=== PATIENT | male | born 1940 | race Caucasian/White ===

== ENCOUNTER → 2020-01-07 13:13 | Outpatient (BNVA) | payer OTHER, SELFPAY | PROVIDERS: Family Provider Emergency Medicine Emergency Medical Services; PCP Emergency Medicine Emergency Medical Services; Visit Provider Urology | DX: N40.1 Benign prostatic hyperplasia with lower urinary tract symptoms (principal); R31.21 Asymptomatic microscopic hematuria | CPT/HCPCS: 81001 ==

== ENCOUNTER 2020-07-01 13:31 | Inpatient (IN) | payer OTHER, MEDICARE, SELFPAY ==
[2020-07-01] VITALS (19 sets, daily range): BP systolic 66–137; BP diastolic 43–86; PULSE 85–199; RESP 19–48; TEMP 36.8; O2SAT 95–100; BMI 26.4
[2020-07-01 13:38] LABS: ABG PH Result 7.41 (7.35-7.45); Alveolar-Arterial Oxygen Gradi 26.2 mmHg (5-10); Arterial Blood Gas Hematocrit 43.5 % (42-52); Base Excess ABG -7.7 mmol/L (-2.0-2.0); Blood Gas Allen Test Pos; Blood Gas Operator Identificat ED; Blood Gas Sample Site Radial, right; Blood Gas Sample Type Arterial; HCO3 ABG 15.1 mmol/L (22-26); HGB O2 Sat 85.3 % (95-100); Ionized Calcium Level - ABG 1.1 mmol/L (1.1-1.4); Methemoglobin 0.6 % (0.4-1.5); Oxygen Device NC; Oxygen Saturation ABG 86.7; PO2 ABG 51.6 mmHg (80.0-100.0); Potassium Level - ABG 3.8 mmol/L (3.5-5.0); Total Hemoglobin 14.2 g/dL (14-18)
--- NOTE | 2020-07-01 13:42 | ECG_ITS ---
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: : 1940 Requested By: Dannie Mark Order Number: [id number] Reading MD: Measurements Intervals [place] Rate: 104 P: 23 VT: 183 QRS: -59 QRSD: 116 T: 94 QT: 352 QTc: 463 Interpretive Statements SINUS TACHYCARDIA POSSIBLE ANTERIOR MYOCARDIAL INFARCTION , OF INDETERMINATE AGE [30 ms Q WAVE IN V3/V4, OR R < 0.2 mV IN V4] INFERIOR MYOCARDIAL INFARCTION , OF INDETERMINATE AGE [40+ ms Q WAVE AND/OR ST/T ABNORMALITY IN II/aVF] INTERPRETATION BASED ON A DEFAULT AGE OF 40 YEARS No previous ECG available for comparison [email or web address]
--- NOTE | 2020-07-01 13:42 | XR_ITS ---
WS: [id number] Exam: XR chest 1V portable [id number] Date/Time of Exam: 07/01/2020 1:51 PM Reason For Exam: SOB/COVID Comparison 02/05/2018. There are patchy groundglass infiltrates in the mid and lower right lung as well as the left lower vaibhav ng zone. Findings suggest pneumonia. The lungs are fully expanded. Cardiomediastinal structures appea r normal. Regional bony elements are intact. There is hardware in the cervical spine. XR/XR chest 1V portable [id number] IMPRESSION: 1. Patchy groundglass infiltrates in the mid and lower right lung as well as th e left lung base suggesting pneumonia.
[2020-07-01] MEDS: dexamethasone 4 mg/mL INJ 10 MG IVP (13:51)
[2020-07-01] MEDS: sodium chloride 0.9% 500 ML 999 ML IV (13:52)
[2020-07-01 14:11] LABS: Basophils % 0.2 %; Eosinophils % 0.1 %; Hematocrit 42.9 % (42.0-52.0); Lymphocytes # 0.8 10^3/uL (0.8-4.8); Lymphocytes % 6.7 %; Mean Corpuscular HGB Conc 32.6 g/dL (30.0-36.0); Mean Corpuscular Hemoglobin 28.5 pg (28.0-34.0); Mean Corpuscular Volume 87.2 fL (80-94); Mean Platelet Volume 9.3 fL (7.4-10.4); Monocytes % 8.2 %; Neutrophils # 9.91 10^3/uL (1.8-7.7); Neutrophils % 82.4 %; Nucleated Red Blood Cells % 0 %; Platelet Count 521 10^3/cmm (130-400); Red Blood Count 4.92 10^6/uL (4.1-5.3); Red Cell Distribution Width 14.4 % (12.1-15.1)
[2020-07-01 14:23] LABS: Lactic Sepsis W/Reflex 2.8 mmol/L (0.5-2.2)
--- NOTE | 2020-07-01 14:30 | ED_ITS ---
HPI - COVID General: Chief Complaint: COVID symptoms Stated Complaint: COVID+/SOB Time Seen by Provider: 07/01/20 14:05 Triage information: Has fever, cough or shortness of breath . Exposure to COVID + person last 14 days History of Present Illness: HPI Narrative: 80-year-old male with a history of COPD who presents to the emergency room with complaints of difficulty breathing. Patient tested on 1019+ for Covid no last several days has had progressive worsening with his breathing. He has a history of heart disease and hyp ertension he is also on anticoagulants. Is a history of COPD is not usually on oxygen on arrival here he is breathing 30-40 times a minute with a systolic pressure in the 90s and sats in the low 90s. He has conversational dyspnea. MD complaint: known COVID positive Prior covid testing: yes, results known COVID 19 common symptoms: positive fever(s), chills, cough, productive cough, dyspnea, fatigue, body aches, nasal congestion and nausea COVID 19 other sytmptoms: positive requiring more oxygen, respiratory distress and lethargy; negative chest pain Onset (ago): day(s) Severity: severe Pertinent comorbid conditions: hypertension and heart disease Treatment prior to arrival: none COVID Results: No Data to Display Review of Systems Const: Reports: fever(s), chills, body aches and fatigue ENMT: Reports: nasal congestion Card: Denies: chest pain, edema, dyspnea on exertion or orthopnea Resp: Reports: dyspnea and productive cough GI: Reports: nausea : Denies: flank pain, dysuria, urinary frequency or urinary urgency Skin/Breast: Denies: rash or pruritus [facility] ED PFSH: Medical History (Updated 07/02/20 @ 08:57 by Dannie Gayle DO) Asymptomatic microscopic hematuria Atrial flutter BPH NOS w ur obs/LUTS CKD stage G3a/A1, GFR 45-59 and albumin creatinine ratio <30 mg/g COPD (chronic obstructive pulmonary disease) Coronary artery disease Surgical History H/O wisdom tooth extraction History of right inguinal hernia repair Family History Other Asthma CAD (coronary artery disease) Social History (Updated 07/01/20 @ 17:22 by Radha Banks MD) Smoking and tobacco status: former smoker Alcohol intake: never Household members: spouse Marital status: Current occupational status: retired History of recent travel: No Physical Exam Const: GENERAL APPEARANCE: cooperative ORIENTATION/CONSCIOUSNESS: Yes awake, Yes oriented to person, Yes oriented to place and Yes oriented to time HENMT: COMMON NORMALS: hearing grossly normal bilaterally Neck/C-Spine: COMMON NORMALS: no JVD Resp: AUSCULTATION: rhonchi and wheezes Cardio: COMMON NORMALS: no JVD, regular rate, regular rhythm and No murmurs present (Cardio) RATE: regular rate RHYTHM: regular rhythm GI: COMMON NORMALS: Soft to palpation and No hepatosplenomegaly present AUSCULTATION: Yes normoactive bowel sounds PALPATION: Yes Soft to palpation, No Tenderness to palpation present (GI), No Guarding due to palpation present (GI) and Yes No hepatosplenomegaly present Extremity: COMMON NORMALS: normal to inspection, capillary refill normal, no clubbing, cyanosis or edema, no calf tenderness and no pedal edema Neuro: SENSORIUM/ORIENTATION: Yes oriented to person, Yes oriented to place and Yes oriented to time Skin: COMMON NORMALS: no rashes or lesions noted GENERAL SKIN EXAM: no rashes or lesions noted Course Vital Signs: Vital signs: Vital Signs Temperature 98.7 F 07/02/20 07:36 Pulse Rate 82 07/02/20 08:33 Respiratory Rate 16 07/02/20 08:33 Blood Pressure 120/69 07/02/20 04:00 Pulse Oximetry 94 07/02/20 08:33 MDM - COVID MDM Narrative Medical decision making narrative: Patient improved on BiPAP and remaining stable. Discussed with Dr. Aba grier we will maintain him on BiPAP for now admit to the VICU. orders are written. Gentle fluid hydration for dehydration. Lab Data Result diagrams: 07/02/20 03:45 07/02/20 03:45 Labs: Lab Results 07/01/20 07/01/20 07/01/20 Range/Units 13:28 13:45 13:45 WBC 12.0 H (4.0-10.0) 10^3/uL RBC 4.92 (4.1-5.3) 10^6/uL Hgb 14.0 (11.7-16.6) g/dL Hct 42.9 (42.0-52.0) % MCV 87.2 (80-94) fL MCH 28.5 (28.0-34.0) pg MCHC 32.6 (30.0-36.0) g/dL RDW 14.4 (12.1-15.1) % Plt Count 521 H (130-400) 10^3/cmm MPV 9.3 (7.4-10.4) fL Neut % (Auto) 82.4 % Lymph % (Auto) 6.7 % Ritchie % (Auto) 8.2 % Eos % (Auto) 0.1 % Baso % (Auto) 0.2 % Neut # (Auto) 9.91 H (1.8-7.7) 10^3/uL Lymph # (Auto) 0.8 (0.8-4.8) 10^3/uL Ritchie # (Auto) 1.0 H (0.2-0.9) 10^3/uL Eos # (Auto) 0.0 (0.0-0.8) 10^3/uL Baso # (Auto) 0.0 (0.0-0.1) 10^3/uL Nucleated RBC % (auto) 0 % Nucleated RBCs # 0.0 /100WBC Fibrinogen 799 H (174-498) mg/dL D-Dimer 1.02 H (0-0.59) ug/mIFEU Specimen Type Arterial Sample Site Radial, right ABG pH 7.41 (7.35-7.45) ABG pCO2 24.0 L (35-45) mmHg ABG pO2 51.6 L (80.0-100.0) mmHg ABG HCO3 15.1 L (22-26) mmol/L ABG O2 Saturation 86.7 ABG Base Excess -7.7 L (-2.0-2.0) mmol/L Anupam Test Pos A-a O2 Gradient 26.2 H (5-10) mmHg Hematocrit 43.5 (42-52) % Hgb O2 Saturation 85.3 L (95-100) % Carboxyhemoglobin 1.0 (0.4-20.1) %THgb Methemoglobin 0.6 (0.4-1.5) % Total Hemoglobin 14.2 (14-18) g/dL Sodium 139.0 (131-143) mmol/L Potassium 3.8 (3.5-5.0) mmol/L Glucose 139.0 H (70-115) mg/dL Ionized Calcium 1.1 (1.1-1.4) mmol/L O2 Delivery Device Nc O2 Liters/Min 5.0 % FiO2 40.0 % Child Development Associate Teacher ID Ed Chloride (98-107) mmol/L Carbon Dioxide (22-29) mmol/L Anion Gap (5-19) BUN (8-23) mg/dL Creatinine (0.7-1.2) mg/dL GFR Calculation Calculated Osmolality (285-295) mOsm/kg Lactic Acid (0.5-2.2) mmol/L Lactic Acid (Sepsis) (0.5-2.2) mmol/L Calcium (8.5-10.5) mg/dL Ferritin (30-400) ng/mL Total Bilirubin (0.15-1.2) mg/dL AST (0-40) U/L ALT (0-41) U/L Alkaline Phosphatase (40-130) IU/L Lactate Dehydrogenase (135-225) U/L C-Reactive Protein (0.0-4.9) mg/L Total Protein (6.6-8.7) g/dL Albumin (3.5-5.2) g/dL Globulin (1.3-4.6) g/dL Procalcitonin (0-0.5) ng/mL 07/01/20 07/01/20 07/01/20 Range/Units 13:45 13:45 15:10 WBC (4.0-10.0) 10^3/uL RBC (4.1-5.3) 10^6/uL Hgb (11.7-16.6) g/dL Hct (42.0-52.0) % MCV (80-94) fL MCH (28.0-34.0) pg MCHC (30.0-36.0) g/dL RDW (12.1-15.1) % Plt Count (130-400) 10^3/cmm MPV (7.4-10.4) fL Neut % (Auto) % Lymph % (Auto) % Ritchie % (Auto) % Eos % (Auto) % Baso % (Auto) % Neut # (Auto) (1.8-7.7) 10^3/uL Lymph # (Auto) (0.8-4.8) 10^3/uL Ritchie # (Auto) (0.2-0.9) 10^3/uL Eos # (Auto) (0.0-0.8) 10^3/uL Baso # (Auto) (0.0-0.1) 10^3/uL Nucleated RBC % (auto) % Nucleated RBCs # /100WBC Fibrinogen (174-498) mg/dL D-Dimer (0-0.59) ug/mIFEU Specimen Type Arterial Sample Site Brachial, left ABG pH 7.39 (7.35-7.45) ABG pCO2 25.4 L (35-45) mmHg ABG pO2 76.9 L (80.0-100.0) mmHg ABG HCO3 15.2 L (22-26) mmol/L ABG O2 Saturation 95.5 ABG Base Excess -8.2 L (-2.0-2.0) mmol/L Anupam Test N/a A-a O2 Gradient 50.1 H (5-10) mmHg Hematocrit 39.6 L (42-52) % Hgb O2 Saturation 94.1 L (95-100) % Carboxyhemoglobin 0.8 (0.4-20.1) %THgb Methemoglobin 0.6 (0.4-1.5) % Total Hemoglobin 12.9 L (14-18) g/dL Sodium 136 139.0 (131-143) mmol/L Potassium 3.9 3.9 (3.5-5.0) mmol/L Glucose 135 H 135.0 H (70-115) mg/dL Ionized Calcium 1.1 (1.1-1.4) mmol/L O2 Delivery Device Bipap O2 Liters/Min % FiO2 70.0 % Child Development Associate Teacher ID Amh Chloride 97 L (98-107) mmol/L Carbon Dioxide 18 L (22-29) mmol/L Anion Gap 24.9 H (5-19) BUN 112 H* (8-23) mg/dL Creatinine 2.9 H (0.7-1.2) mg/dL GFR Calculation Not Reportable Calculated Osmolality 320 H (285-295) mOsm/kg Lactic Acid 2.8 H (0.5-2.2) mmol/L Lactic Acid (Sepsis) (0.5-2.2) mmol/L Calcium 8.7 (8.5-10.5) mg/dL Ferritin 2333 H (30-400) ng/mL Total Bilirubin 1.2 (0.15-1.2) mg/dL AST 54 H (0-40) U/L ALT 40 (0-41) U/L Alkaline Phosphatase 87 (40-130) IU/L Lactate Dehydrogenase 514 H (135-225) U/L C-Reactive Protein 197.7 H (0.0-4.9) mg/L Total Protein 6.9 (6.6-8.7) g/dL Albumin 3.7 (3.5-5.2) g/dL Globulin 3.2 (1.3-4.6) g/dL Procalcitonin 0.32 (0-0.5) ng/mL 07/01/20 Range/Units 16:00 WBC (4.0-10.0) 10^3/uL RBC (4.1-5.3) 10^6/uL Hgb (11.7-16.6) g/dL Hct (42.0-52.0) % MCV (80-94) fL MCH (28.0-34.0) pg MCHC (30.0-36.0) g/dL RDW (12.1-15.1) % Plt Count (130-400) 10^3/cmm MPV (7.4-10.4) fL Neut % (Auto) % Lymph % (Auto) % Ritchie % (Auto) % Eos % (Auto) % Baso % (Auto) % Neut # (Auto) (1.8-7.7) 10^3/uL Lymph # (Auto) (0.8-4.8) 10^3/uL Ritchie # (Auto) (0.2-0.9) 10^3/uL Eos # (Auto) (0.0-0.8) 10^3/uL Baso # (Auto) (0.0-0.1) 10^3/uL Nucleated RBC % (auto) % Nucleated RBCs # /100WBC Fibrinogen (174-498) mg/dL D-Dimer (0-0.59) ug/mIFEU Specimen Type Sample Site ABG pH (7.35-7.45) ABG pCO2 (35-45) mmHg ABG pO2 (80.0-100.0) mmHg ABG HCO3 (22-26) mmol/L ABG O2 Saturation ABG Base Excess (-2.0-2.0) mmol/L Anupam Test A-a O2 Gradient (5-10) mmHg Hematocrit (42-52) % Hgb O2 Saturation (95-100) % Carboxyhemoglobin (0.4-20.1) %THgb Methemoglobin (0.4-1.5) % Total Hemoglobin (14-18) g/dL Sodium (131-143) mmol/L Potassium (3.5-5.0) mmol/L Glucose (70-115) mg/dL Ionized Calcium (1.1-1.4) mmol/L O2 Delivery Device O2 Liters/Min % FiO2 % Child Development Associate Teacher ID Chloride (98-107) mmol/L Carbon Dioxide (22-29) mmol/L Anion Gap (5-19) BUN (8-23) mg/dL Creatinine (0.7-1.2) mg/dL GFR Calculation Calculated Osmolality (285-295) mOsm/kg Lactic Acid (0.5-2.2) mmol/L Lactic Acid (Sepsis) 1.7 (0.5-2.2) mmol/L Calcium (8.5-10.5) mg/dL Ferritin (30-400) ng/mL Total Bilirubin (0.15-1.2) mg/dL AST (0-40) U/L ALT (0-41) U/L Alkaline Phosphatase (40-130) IU/L Lactate Dehydrogenase (135-225) U/L C-Reactive Protein (0.0-4.9) mg/L Total Protein (6.6-8.7) g/dL Albumin (3.5-5.2) g/dL Globulin (1.3-4.6) g/dL Procalcitonin (0-0.5) ng/mL COVID Results: No Data to Display Discharge Plan Discharge Patient Disposition: Admitted As Inpatient Admit Provider: Radha Banks Clinical Impression: Pneumonia due to COVID-19 virus, Acute respiratory failure with hypoxia, COPD exacerbation, GAB (acute kidney injury), BPH NOS w ur obs/LUTS, Coronary artery disease Condition: Stable Interventions: ED Discharge Assessment Last Done: 07/01/20 19:16 ED Charges Last Done: 07/01/20 19:16 Discharge Date/Time: 07/01/20 19:17 Coding Level of Care Code ED Furnace Cooler for Chg Fwd Exam Comprehensive
[2020-07-01 14:33] LABS: Procalcitonin 0.32 ng/mL (0-0.5)
[2020-07-01 14:36] LABS: Fibrinogen 799 mg/dL (174-498)
[2020-07-01 14:44] LABS: Alanine Aminotransferase 40 U/L (0-41); Albumin Level 3.7 g/dL (3.5-5.2); Alkaline Phosphatase 87 IU/L (40-130); Anion Gap 24.9 (5-19); Aspartate Amino Transferase 54 U/L (0-40); C Reactive Protein 197.7 mg/L (0.0-4.9); Calcium 8.7 mg/dL (8.5-10.5); Carbon Dioxide 18 mmol/L (22-29); Chloride 97 mmol/L (98-107); Globulin 3.2 g/dL (1.3-4.6); Glucose 135 mg/dL (65-115); Lactate Dehydrogenase 514 U/L (135-225); Osmolality Calculated 320 mOsm/kg (285-295); Potassium 3.9 mmol/L (3.5-5.1); Sodium 136 mmol/L (136-145); Total Bilirubin 1.2 mg/dL (0.15-1.2); Total Protein 6.9 g/dL (6.6-8.7)
[2020-07-01 14:47] LABS: Blood Urea Nitrogen 112 mg/dL (8-23)
[2020-07-01 14:59] LABS: Ferritin 2333 ng/mL (30-400)
[2020-07-01 15:24] LABS: ABG PCO2 25.4 mmHg (35-45); ABG PH Result 7.39 (7.35-7.45); Alveolar-Arterial Oxygen Gradi 50.1 mmHg (5-10); Arterial Blood Gas Hematocrit 39.6 % (42-52); Base Excess ABG -8.2 mmol/L (-2.0-2.0); Blood Gas Operator Identificat AMH; Blood Gas Sample Site Brachial, left; Blood Gas Sample Type Arterial; Carboxyhemoglobin 0.8 %THgb (0.4-20.1); HCO3 ABG 15.2 mmol/L (22-26); HGB O2 Sat 94.1 % (95-100); Ionized Calcium Level - ABG 1.1 mmol/L (1.1-1.4); Methemoglobin 0.6 % (0.4-1.5); Oxygen Device BIPAP; Oxygen Saturation ABG 95.5; PO2 ABG 76.9 mmHg (80.0-100.0); Potassium Level - ABG 3.9 mmol/L (3.5-5.0); Total Hemoglobin 12.9 g/dL (14-18)
[2020-07-01 15:44] LABS: Reflex Lactate Order REFLEX LACTIC ORDERD
[2020-07-01] MEDS: sodium chloride 0.9% 1,000 ML 999 ML IV (16:07)
[2020-07-01 16:27] LABS: Lactic Acid level (Lactate) 1.7 mmol/L (0.5-2.2)
[2020-07-01 16:32] LABS: D Dimer 1.02 ug/mIFEU (0-0.59)
--- NOTE | 2020-07-01 16:41 | PC.NURSE ---
Spoke with pt daughter Paris and updated on pt status and pending admission. All questions answered.
--- NOTE | 2020-07-01 17:11 | P.HP_ITS ---
Providers/Chief Complaint Admitting Physician: Radha Banks MD Primary Care Provider: Antolin Jernigan DO Chief Complaint: COVID+/SOB History of Present Illness Armando Tripathi is a 80 year old male with PMHx noted below presents from home via EMS secondary to acutely worsening shortness of breath, cough, fatigue. He was diagnosed with COVID-19 on 06/17 during which time he began to present with symptoms primarily shortness of breath, nausea, diarrhea, fatigue. He thought he was getting better as he felt relatively well until earlier this morning while he was in the kitchen trying to get some water when he suddenly got quite short of breath with worsening dry and persistent cough. 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 Due to degree of respiratory distress en route to the hospital he was placed on supplemental oxygen with noted continued tachypnea, inability to maintain his oxygen saturation appropriately. On his arrival to the ER he was placed on BiPAP with noted improvement in his overall work of breathing as well as oxygenation. He was noted to be hypotensive and so far has received 2 L normal saline bolus with improvement in his blood pressure. He is afebrile with regular heart rate. Chest x-ray shows evidence of groundglass infiltrates bilaterally suggestive of pneumonia and he has received a dose of remdesivir and dexamethasone. The work-up indicates leukocytosis with a white count of 12.0, neutrophilic predominance, elevated inflammatory markers including platelet count, fibrinogen, D-dimer, LDH, and ferritin. His renal function is also quite impaired with a BUN of 112 and creatinine of 2.9. Lactic acid is 2.8, procalcitonin is 0.32. He is able to provide much of his own history during my encounter in the ER though he does remain on BiPAP support with an FiO2 of 70%. Repeat ABG shows improvement in oxygenation with PO2 improving from 51.6->76.9. He will be admitted to the viral ICU for further treatment and close monitoring. Low threshold for decompensation and possible intubation. I have updated patient's daughter Rika Rendon over the phone on patient's clinical status. Review of Systems Const: Reports: change in appetite (decreased appetite) and fatigue; Denies: fever(s) or chills Eyes: Denies: change in vision ENMT: Reports: dry mouth Card: Reports: dyspnea on exertion; Denies: chest pain, swelling of feet/ankles or lightheadedness Resp: Reports: dyspnea and non-productive cough; Denies: hemoptysis GI: Reports: nausea and diarrhea; Denies: abdominal pain, vomiting, hematemesis or hematochezia : Denies: dysuria or hematuria Musc: Denies: back pain Skin/Breast: Denies: rash Neuro: Reports: weakness in extremities; Denies: numbness in extremities Psych: Denies: anxiety Medications/Allergies Home Medications Medication Instructions Recorded Confirmed Last Taken Type apixaban 5 mg tablet 5 mg PO BID 01/07/20 07/01/20 Unknown History atorvastatin 80 mg tablet 40 mg PO DAILY 01/07/20 07/01/20 Unknown History cholecalciferol (vitamin D3) 50 50 mcg PO DAILY 01/07/20 07/01/20 Unknown History mcg (2,000 unit) capsule turmeric 400 mg capsule 400 mg PO DAILY 01/07/20 07/01/20 Unknown History albuterol sulfate 2.5 mg INHALATION Q6H 07/01/20 07/01/20 Unknown History ipratropium-albuterol 1 puff INHALATION Q6H 07/01/20 07/01/20 Unknown History lisinopril-hydrochlorothiazide 1 tab PO DAILY 07/01/20 07/01/20 Unknown History metoprolol tartrate 50 units PO BID 07/01/20 07/01/20 Unknown History olodaterol 2 inh INHALATION DAILY 07/01/20 07/01/20 Unknown History sildenafil See Rx Instructions .ROUTE .COMPLEX 07/01/20 07/01/20 Unknown History tamsulosin 0.4 mg PO BEDTIME 07/01/20 07/01/20 Unknown History Allergies Allergy/AdvReac Type Severity Reaction Status Date / Time No Known Allergies Allergy Unverified 01/07/20 13:06 PFSH Acute PFSH: Medical History (Updated 07/01/20 @ 18:24 by Radha Banks MD) Asymptomatic microscopic hematuria Atrial flutter BPH NOS w ur obs/LUTS CKD stage G3a/A1, GFR 45-59 and albumin creatinine ratio <30 mg/g COPD (chronic obstructive pulmonary disease) Coronary artery disease Surgical History H/O wisdom tooth extraction History of right inguinal hernia repair Family History Other Asthma CAD (coronary artery disease) Social History (Updated 07/01/20 @ 17:22 by Radha Banks MD) Smoking and tobacco status: former smoker Alcohol intake: never Household members: spouse Marital status: Current occupational status: retired History of recent travel: No Vitals/I&O/Wt Last Vital Signs Temp 98.2 F 07/01/20 13:33 Pulse 91 07/01/20 16:00 Resp 23 H 07/01/20 16:00 BP 93/43 07/01/20 16:00 Pulse Ox 100 07/01/20 16:00 07/01/20 07/01/20 07/01/20 06:59 14:59 22:59 Intake Total 500 / 500 Balance 500 / 500 Weight last 48 hrs Weight 88.451 kg Physical Exam Const: COMMON NORMALS: no acute distress, patient oriented x3 and alert GENERAL APPEARANCE: cooperative and comfortable; not ill appearing ORIENTATION/CONSCIOUSNESS: Yes awake HENMT: COMMON NORMALS: normocephalic, atraumatic, hearing grossly normal bilaterally and moist oral mucous membranes HEAD & SCALP: normocephalic and atraumatic Eye: COMMON NORMALS: Equal, round and reactive pupils present, EOMs intact bilaterally and conjunctivae normal CONJUNCTIVA: Yes conjunctivae normal PUPIL: Yes Equal, round and reactive pupils present Neck/C-Spine: COMMON NORMALS: full ROM GENERAL: Yes normal visual inspection and Yes trachea midline Resp: COMMON NORMALS: No retractions and No use of accessory muscles EFFORT & INSPECTION: Yes able to speak in complete sentences, Yes symmetric chest movement and Yes tachypneic AUSCULTATION: diminished lung sounds OTHER: - on BiPAP (70%/19/04) Cardio: COMMON NORMALS: regular rate, regular rhythm, S1 normal heart sound present, S2 normal heart sound present and No murmurs present (Cardio) RATE: regular rate RHYTHM: regular rhythm HEART SOUNDS: S1 normal heart sound present and S2 normal heart sound present GI: COMMON NORMALS: Normal to inspection, nondistended, normoactive bowel sounds present, Soft to palpation and non-tender INSPECTION: Yes central obesity PALPATION: Yes Soft to palpation Extremity: COMMON NORMALS: normal to inspection, full ROM, no clubbing, cyanosis or edema and no pedal edema Neuro: COMMON NORMALS: patient oriented x3, moves all extremities, no focal motor deficits, no sensory deficits noted and gait normal Psych: COMMON NORMALS: mental status grossly normal, Normal thought process present, cooperative, normal affect and speech normal SPEECH: Yes normal speech THOUGHT PROCESS: Normal thought process present Skin: COMMON NORMALS: no rashes or lesions noted, no jaundice, no petechiae and no mottling GENERAL SKIN EXAM: no rashes or lesions noted Data : 07/01/20 13:45 07/01/20 13:45 A&P Assessment and plan (1) Acute respiratory failure with hypoxia: -Presented in significant distress as evidenced by tachypnea, hypoxia, increased respiratory effort not improved with use of nasal cannula. Currently on BiPAP with FiO2 of 70% with noted improvement -Initial ABG showing significant hypoxia with PO2 of 51.6. Follow-up ABG f ollowing use of BiPAP improved to 77 -Continue BiPAP use for now -Continue to monitor respiratory status closely -Respiratory distress likely triggered by Covid 19 pneumonia and acute COPD exacerbation -low threshold for decompensation and intubation Status: Acute (2) Pneumonia due to COVID-19 virus: -Found to be positive for COVID-19 approximately 9 days ago -Reports having been doing well initially up until earlier today -Currently requiring BiPAP support -Close monitoring of respiratory status -Has received an initial dose of remdesivir and dexamethasone; continue treatment -Due to noted evidence of infection, inability to rule out bacterial super- infection, and degree of respiratory distress on admission will treat with empiric antibiotics -Breathing treatments as needed, further supportive care including pulmonary toilet, incentive spirometry, zinc, vitamin C, antitussives as needed -Monitor vital signs -Telemetry monitoring -f/u blood and sputum cx -check bacterial antigens, Legionella, MRSA, influenza -trend inflammatory markers -noted leukocytosis with neutrophilic predominance; trend WBC Status: Acute (3) COPD exacerbation: -As noted above -not oxygen dependent at baseline Status: Acute (4) GAB (acute kidney injury): -likely secondary to dehydration from poor oral intake -gentle IVF hydration -monitor renal function -avoid nephrotoxins, renally dose meds Status: Acute (5) Atrial flutter: -Telemetry monitoring -hold BB for now due to noted hypotension -resume Eliquis Status: Chronic Qualifiers: Atrial flutter type: unspecified Qualified Code(s): I48.92 - Unspecified atrial flutter (6) BPH NOS w ur obs/LUTS: -resume tamsulosin Status: Chronic (7) Coronary artery disease: -Echo (2018): EF=55%, no valvular abnormalities Status: Chronic Qualifiers: Coronary Disease-Associated Artery/Lesion type: [place] artery [place] vs. transplanted heart: [place] heart Associated angina: angina presence unspecified Qualified Code(s): I25.10 - Atherosclerotic heart disease of [place] coronary artery without angina pectoris Additional A&P Information -CLD for now -GI ppx with famotidine -DVT ppx not needed as on Eliquis -Dispo: home -Code status: FULL code -Admit to VICU -daughter Rika Rendon updated Attestations Medical Necessity Statement*: [facility]'s hospital stay will require greater than 2 midnights for management of COVID-19 pneumonia, acute COPD exacerbation, currently on BiPAP support. Time Spent in Patient Care: Greater than 35 minutes (>than 50% of time spent in counselling and/or direct pt care on unit) . Coding Level of Care Code Acute School Counsellor for [facility] Fwd Diagnoses Acute respiratory failure with hypoxia J96.01 Pneumonia due to COVID-19 virus U07.1; J12.89 COPD exacerbation J44.1 GAB (acute kidney injury) N17.9 Atrial flutter I48.92 Atrial flutter type: unspecified BPH NOS w ur obs/LUTS N40.1 Coronary artery disease I25.10 Coronary Disease-Associated Artery/Lesion type: [place] artery [place] vs. transplanted heart: [place] heart Associated angina: angina presence unspecified
[2020-07-01] MEDS: apixaban 5 mg Tablet PO (20:54)
[2020-07-01] MEDS: azithromycin 500 MG in sodium chloride 0.9% 250 ML 250 MG IV (20:54)
[2020-07-01] MEDS: famotidine 20 mg Tablet PO (20:55)
[2020-07-01] MEDS: tamsulosin 0.4 mg Capsule PO (20:55)
[2020-07-01] MEDS: sodium chloride 0.9% 1,000 ML 100 ML IV (20:55)
[2020-07-01 21:32] LABS: Influenza A by IFA Negative (Negative)
[2020-07-01 21:33] LABS: Influenza B by IFA Negative (Negative)
[2020-07-02] VITALS (30 sets, daily range): BP systolic 91–131; BP diastolic 49–74; PULSE 77–130; RESP 16–46; TEMP 36.4–37.2; O2SAT 90–100
[2020-07-02 05:25] LABS: Basophils % 0.1 %; Hematocrit 35.8 % (42.0-52.0); Hemoglobin 11.9 g/dL (11.7-16.6); Lymphocytes # 0.5 10^3/uL (0.8-4.8); Lymphocytes % 6.3 %; Mean Corpuscular HGB Conc 33.2 g/dL (30.0-36.0); Mean Corpuscular Hemoglobin 28.7 pg (28.0-34.0); Mean Corpuscular Volume 86.5 fL (80-94); Mean Platelet Volume 9.3 fL (7.4-10.4); Monocytes # 0.2 10^3/uL (0.2-0.9); Monocytes % 3.3 %; Neutrophils # 6.23 10^3/uL (1.8-7.7); Neutrophils % 86.7 %; Nucleated Red Blood Cells % 0 %; Platelet Count 466 10^3/cmm (130-400); Red Blood Count 4.14 10^6/uL (4.1-5.3); Red Cell Distribution Width 14.3 % (12.1-15.1); White Blood Count 7.2 10^3/uL (4.0-10.0)
[2020-07-02 05:46] LABS: Fibrinogen 647 mg/dL (174-498)
[2020-07-02 05:49] LABS: D Dimer 0.93 ug/mIFEU (0-0.59)
[2020-07-02 05:50] LABS: Alanine Aminotransferase 33 U/L (0-41); Albumin Level 2.8 g/dL (3.5-5.2); Alkaline Phosphatase 71 IU/L (40-130); Aspartate Amino Transferase 38 U/L (0-40); Calcium 7.8 mg/dL (8.5-10.5); Carbon Dioxide 16 mmol/L (22-29); Chloride 106 mmol/L (98-107); Globulin 3.7 g/dL (1.3-4.6); Glucose 179 mg/dL (65-115); Osmolality Calculated 325 mOsm/kg (285-295); Sodium 138 mmol/L (136-145); Total Bilirubin 0.5 mg/dL (0.15-1.2); Total Protein 6.5 g/dL (6.6-8.7)
[2020-07-02 05:51] LABS: C Reactive Protein 163.1 mg/L (0.0-4.9); Creatine Phosphokinase 208 U/L (39-308)
[2020-07-02 05:52] LABS: Blood Urea Nitrogen 108 mg/dL (8-23)
[2020-07-02 05:57] LABS: Lactate Dehydrogenase 385 U/L (135-225); NT Pro B Type Natriuretic Pept 1819 pg/mL (0-450)
[2020-07-02 06:02] LABS: Ferritin 1892 ng/mL (30-400)
[2020-07-02] MEDS: sodium chloride 0.9% 1,000 ML 100 ML IV ×2 (08:10→17:26)
[2020-07-02] MEDS: zinc gluconate 50 mg Tablet PO (08:11)
[2020-07-02] MEDS: apixaban 5 mg Tablet PO ×2 (08:11→17:26)
[2020-07-02] MEDS: ascorbic acid 500 mg Tablet PO (08:11)
[2020-07-02] MEDS: dexamethasone 4 mg/mL INJ 6 MG IVP (08:11)
[2020-07-02] MEDS: atorvastatin 40 mg Tablet PO (08:11)
[2020-07-02] MEDS: famotidine 20 mg Tablet PO ×2 (08:11→17:26)
--- NOTE | 2020-07-02 11:31 | P.PN_ITS ---
Subjective Subjective: Interval history: Weaned off BiPAP support, currently on 4 L nasal cannula, more hemodynamically stable does have noted tachycardia, will resume beta-[place]. Noted improvement in inflammatory markers. On day 2 of remdesivir. Medications: Reviewed: Yes Medication Review Details: Active Medications Generic Name Dose Route Start Last Admin Trade Name Freq PRN Reason Stop Dose Admin Acetaminophen 650 mg 07/01/20 20:14 Tylenol PO Q6H PRN MILD PAIN Albuterol Sulfate 2 puff 07/01/20 20:14 Ventolin INHALATION Q4H.RESPIRATORY P RN SHORTNESS OF DAPHNE TH Apixaban 5 mg 07/01/20 20:14 07/02/20 08:11 Eliquis PO 5 mg BID TATI Administration Ascorbic Acid 500 mg 07/02/20 09:00 07/02/20 08:11 Vitamin C PO 500 mg DAILY TATI Administration Atorvastatin Calci um 40 mg 07/02/20 09:00 07/02/20 08:11 Lipitor PO 40 mg DAILY TATI Administration Benzonatate 100 mg 07/01/20 20:14 Tessalon Pearls PO TID PRN COUGH Dexamethasone 6 mg 07/02/20 09:00 07/02/20 08:11 Decadron IVP 6 mg Q24H TATI Administration Famotidine 20 mg 07/01/20 20:14 07/02/20 08:11 Pepcid Tab PO 20 mg BID TATI Administration remdesivir (EUA) 1 00 mg/ 100 mls @ 100 mls /hr 07/02/20 14:15 Sodium Chloride IV 07/05/20 15:14 Q24H TATI Azithromycin 500 m g/ Sodium 250 mls @ 250 mls /hr 07/01/20 20:14 07/01/20 20:54 Chloride IV 250 mls/hr Q24H TATI Administration Protocol Sodium Chloride 1,000 mls @ 75 ml s/hr 07/01/20 20:14 07/02/20 08:10 Sodium Chloride 0.9% IV 100 mls/hr .[id number] TATI Administration Metoprolol Tartrat e 25 mg 07/02/20 11:35 Lopressor PO BID TATI Morphine Sulfate 2 mg 07/01/20 20:14 Morphine IVP Q4H PRN SEVERE PAIN Non-Formulary Medi cation 50 mcg 07/02/20 09:00 07/02/20 10:10 Cholecalciferol (Vitamin D3) PO Not Given DAILY TATI Ondansetron HCl 4 mg 07/01/20 20:14 Zofran IVP Q6H PRN NAUSEA AND VOMITI NG Fluticasone/Salmet adilene 1 puff 07/02/20 08:00 07/02/20 08:32 Advair Diskus 25 0-50 INHALATION 1 puff BID.RESPIRATORY S CH Administration Tamsulosin HCl 0.4 mg 07/01/20 21:00 07/01/20 20:55 Flomax PO 0.4 mg BEDTIME TATI Administration Zinc Gluconate 50 mg 07/02/20 09:00 07/02/20 08:11 Zinc Gluconate PO 50 mg DAILY TATI Administration No Known Allergies Allergy (Unverified 01/07/20 13:06) Vitals/I&O/Wt Last Vital Signs Temp 97.6 F 07/02/20 11:28 Pulse 128 H 07/02/20 10:00 Resp 18 07/02/20 10:00 BP 101/49 07/02/20 10:00 Pulse Ox 90 07/02/20 10:00 07/01/20 07/02/20 07/02/20 22:59 06:59 14:59 Intake Total 1100 / 1600 1250 / 2850 Output Total 350 / 350 400 / 400 Balance 1100 / 1600 900 / 2500 -400 / -400 Weight last 48 hrs Weight 88.451 kg Physical Exam Const: COMMON NORMALS: no acute distress, patient oriented x3 and alert GENERAL APPEARANCE: cooperative and comfortable; not ill appearing ORIENTATION/CONSCIOUSNESS: Yes awake HENMT: COMMON NORMALS: normocephalic, atraumatic, hearing grossly normal bilaterally and moist oral mucous membranes HEAD & SCALP: normocephalic and atraumatic Eye: COMMON NORMALS: Equal, round and reactive pupils present, EOMs intact bilaterally and conjunctivae normal CONJUNCTIVA: Yes conjunctivae normal PUPIL: Yes Equal, round and reactive pupils present Neck/C-Spine: COMMON NORMALS: full ROM GENERAL: Yes normal visual inspection and Yes trachea midline Resp: COMMON NORMALS: No retractions and No use of accessory muscles EFFORT & INSPECTION: Yes able to speak in complete sentences, Yes symmetric chest movement and Yes tachypneic AUSCULTATION: diminished lung sounds OTHER: - on 4 L HFNC Cardio: COMMON NORMALS: regular rate, regular rhythm, S1 normal heart sound present, S2 normal heart sound present and No murmurs present (Cardio) RATE: regular rate RHYTHM: regular rhythm HEART SOUNDS: S1 normal heart sound present and S2 normal heart sound present GI: COMMON NORMALS: Normal to inspection, nondistended, normoactive bowel sounds present, Soft to palpation and non-tender INSPECTION: Yes central obesity PALPATION: Yes Soft to palpation Extremity: COMMON NORMALS: normal to inspection, full ROM, no clubbing, cyanosis or edema and no pedal edema Neuro: COMMON NORMALS: patient oriented x3, moves all extremities, no focal motor deficits, no sensory deficits noted and gait normal SENSORIUM/ORIENTATION: Yes alert Psych: COMMON NORMALS: mental status grossly normal, Normal thought process present, cooperative, normal affect and speech normal SPEECH: Yes normal speech THOUGHT PROCESS: Normal thought process present Skin: COMMON NORMALS: no rashes or lesions noted, no jaundice, no petechiae and no mottling GENERAL SKIN EXAM: no rashes or lesions noted Data : 07/02/20 03:45 07/02/20 03:45 Micro: Microbiology 07/01/20 22:40 Blood Culture - Preliminary Blood SPECIMEN COLLECTED 07/01/20 22:25 Blood Culture - Preliminary Blood SPECIMEN COLLECTED 07/01/20 18:50 Bacterial Antigens - Final Urine,Voided A&P Assessment and plan (1) Acute respiratory failure with hypoxia: -Presented in significant distress as evidenced by tachypnea, hypoxia, increased respiratory effort not improved with use of nasal cannula. Initially required BiPAP support, has been weaned to high flow nasal cannula -Initial ABG showing significant hypoxia with PO2 of 51.6. Follow-up ABG following use of BiPAP improved to 77 -BiPAP use as needed vs. 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 -Close monitoring of respiratory status -continue remdesivir (day 2) and dexamethasone -Due to noted evidence of infection, inability to rule out bacterial super- infection, and degree of respiratory distress on admission will treat with empiric antibiotics -Breathing treatments as needed, further supportive care including pulmonary toilet, incentive spirometry, zinc, vitamin C, antitussives as needed -continue to monitor vital signs -Telemetry monitoring -f/u blood and sputum cx -negative bacterial antigens, influenza screen; f/u Legionella, MRSA -continue to trend inflammatory markers; improving -noted leukocytosis with neutrophilic predominance now resolved Status: Acute (3) COPD exacerbation: -As noted above -not oxygen dependent at baseline Status: Acute (4) GAB (acute kidney injury): -likely secondary to dehydration from poor oral intake -gentle IVF hydration -continue to monitor renal function; gradually improving -avoid nephrotoxins, renally dose meds Status: Acute (5) Atrial flutter: -Telemetry monitoring -resume BB as BP improved -continue Eliquis Status: Chronic Qualifiers: Atrial flutter type: unspecified Qualified Code(s): I48.92 - Unspecified atrial flutter (6) BPH NOS w ur obs/LUTS: -continue tamsulosin Status: Chronic (7) Coronary artery disease: -Echo (2018): EF=55%, no valvular abnormalities Status: Chronic Additional A&P Information -Cardiac diet as tolerated -GI ppx with famotidine -DVT ppx not needed as on Eliquis -Dispo: home -Code status: FULL code -daughter Rika Rendon updated Attestations Medical Necessity Statement*: Patient requires hospitalization for continued management of COVID-19 pneumonia, on antibiotic and antiviral treatment, needs continued close monitoring of respiratory status. Time Spent in Patient Care: 16 - 35 minutes (>than 50% of time spent in counselling and/or direct pt care on unit) . 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
[2020-07-02] MEDS: metoprolol tartrate 25 mg Tablet PO ×2 (12:21→17:26)
[2020-07-02] MEDS: azithromycin 500 MG in sodium chloride 0.9% 250 ML 250 MG IV (20:41)
[2020-07-02] MEDS: tamsulosin 0.4 mg Capsule PO (20:41)
[2020-07-03] VITALS (27 sets, daily range): BP systolic 93–136; BP diastolic 45–89; PULSE 75–125; RESP 15–40; TEMP 36.4–36.8; O2SAT 89–100
[2020-07-03 05:31] LABS: Platelet Count 571 10^3/cmm (130-400)
[2020-07-03 06:08] LABS: C Reactive Protein 87.3 mg/L (0.0-4.9); Calcium 7.7 mg/dL (8.5-10.5); Carbon Dioxide 17 mmol/L (22-29); Chloride 111 mmol/L (98-107); Glucose 157 mg/dL (65-115); Osmolality Calculated 322 mOsm/kg (285-295); Sodium 140 mmol/L (136-145)
[2020-07-03 06:14] LABS: NT Pro B Type Natriuretic Pept 7104 pg/mL (0-450)
[2020-07-03 06:22] LABS: Fibrinogen 516 mg/dL (174-498)
[2020-07-03 06:25] LABS: D Dimer 1.04 ug/mIFEU (0-0.59)
[2020-07-03 06:26] LABS: Anion Gap 15.6 (5-19); Blood Urea Nitrogen 94 mg/dL (8-23); Potassium 3.6 mmol/L (3.5-5.1)
[2020-07-03 06:29] LABS: Ferritin 1627 ng/mL (30-400)
[2020-07-03 07:16] LABS: Lactate Dehydrogenase 471 U/L (135-225)
[2020-07-03] MEDS: metoprolol tartrate 25 mg Tablet PO ×2 (08:47→17:08)
[2020-07-03] MEDS: famotidine 20 mg Tablet PO ×2 (08:48→17:08)
[2020-07-03] MEDS: apixaban 5 mg Tablet PO ×2 (08:48→17:08)
[2020-07-03] MEDS: ascorbic acid 500 mg Tablet PO (08:48)
[2020-07-03] MEDS: dexamethasone 4 mg/mL INJ 6 MG IVP (08:48)
[2020-07-03] MEDS: zinc gluconate 50 mg Tablet PO (08:48)
[2020-07-03] MEDS: atorvastatin 40 mg Tablet PO (08:48)
--- NOTE | 2020-07-03 13:55 | P.PN_ITS ---
Subjective Subjective: Interval history: On 5 L HFNC, hemodynamically stable, afebrile, had 550 ml urine output overnight. Increase in some inflammatory markers, on day 3 of remdesevir. Will give dose of bumex due to concern for possible fluid overload. Medications: Reviewed: Yes Medication Review Details: Active Medications Generic Name Dose Route Start Last Admin Trade Name Freq PRN Reason Stop Dose Admin Acetaminophen 650 mg 07/01/20 20:14 Tylenol PO Q6H PRN MILD PAIN Albuterol Sulfate 2 puff 07/01/20 20:14 Ventolin INHALATION Q4H.RESPIRATORY P RN SHORTNESS OF DAPHNE TH Apixaban 5 mg 07/01/20 20:14 07/03/20 08:48 Eliquis PO 5 mg BID TATI Administration Ascorbic Acid 500 mg 07/02/20 09:00 07/03/20 08:48 Vitamin C PO 500 mg DAILY TATI Administration Atorvastatin Calci um 40 mg 07/02/20 09:00 07/03/20 08:48 Lipitor PO 40 mg DAILY TATI Administration Benzonatate 100 mg 07/01/20 20:14 Tessalon Pearls PO TID PRN COUGH Dexamethasone 6 mg 07/02/20 09:00 07/03/20 08:48 Decadron IVP 6 mg Q24H TATI Administration Famotidine 20 mg 07/01/20 20:14 07/03/20 08:48 Pepcid Tab PO 20 mg BID TATI Administration remdesivir (EUA) 1 00 mg/ 100 mls @ 100 mls /hr 07/02/20 14:15 07/02/20 14:44 Sodium Chloride IV 07/05/20 15:14 100 mls/hr Q24H TATI Administration Azithromycin 500 m g/ Sodium 250 mls @ 250 mls /hr 07/01/20 20:14 07/02/20 20:41 Chloride IV 250 mls/hr Q24H TATI Administration Protocol Sodium Chloride 1,000 mls @ 75 ml s/hr 07/01/20 20:14 07/02/20 17:26 Sodium Chloride 0.9% IV 100 mls/hr .[id number] TATI Administration Metoprolol Tartrat e 25 mg 07/02/20 11:35 07/03/20 08:47 Lopressor PO 25 mg BID TATI Administration Morphine Sulfate 2 mg 07/01/20 20:14 Morphine IVP Q4H PRN SEVERE PAIN Non-Formulary Medi cation 50 mcg 07/02/20 09:00 07/03/20 08:49 Cholecalciferol (Vitamin D3) PO Not Given DAILY TATI Ondansetron HCl 4 mg 07/01/20 20:14 Zofran IVP Q6H PRN NAUSEA AND VOMITI NG Fluticasone/Salmet adilene 1 puff 07/02/20 08:00 07/03/20 08:30 Advair Diskus 25 0-50 INHALATION 1 puff BID.RESPIRATORY S CH Administration Tamsulosin HCl 0.4 mg 07/01/20 21:00 07/02/20 20:41 Flomax PO 0.4 mg BEDTIME TATI Administration Zinc Gluconate 50 mg 07/02/20 09:00 07/03/20 08:48 Zinc Gluconate PO 50 mg DAILY TATI Administration No Known Allergies Allergy (Unverified 01/07/20 13:06) Vitals/I&O/Wt Last Vital Signs Temp 97.8 F 07/03/20 12:00 Pulse 88 07/03/20 13:22 Resp 28 H 07/03/20 13:22 BP 106/55 07/03/20 12:00 Pulse Ox 95 07/03/20 13:22 07/02/20 07/03/20 07/03/20 22:59 06:59 14:59 Intake Total 1506.667 / 1926.667 200 / 2126.667 120 / 120 Output Total 710 / 1210 300 / 1510 300 / 300 Balance 796.667 / 716.667 -100 / 616.667 -180 / -180 Physical Exam Const: COMMON NORMALS: no acute distress, patient oriented x3 and alert GENERAL APPEARANCE: cooperative and comfortable; not ill appearing ORIENTATION/CONSCIOUSNESS: Yes awake OTHER: -sitting in recliner, in good spirits HENMT: COMMON NORMALS: normocephalic, atraumatic, hearing grossly normal bilaterally and moist oral mucous membranes HEAD & SCALP: normocephalic and atraumatic Eye: COMMON NORMALS: Equal, round and reactive pupils present, EOMs intact bilaterally and conjunctivae normal CONJUNCTIVA: Yes conjunctivae normal PUPIL: Yes Equal, round and reactive pupils present Neck/C-Spine: COMMON NORMALS: full ROM GENERAL: Yes normal visual inspection and Yes trachea midline Resp: COMMON NORMALS: No retractions and No use of accessory muscles EFFORT & INSPECTION: Yes able to speak in complete sentences, Yes symmetric chest movement and Yes tachypneic AUSCULTATION: diminished lung sounds OTHER: - on 4-5 L HFNC -conversational dyspnea Cardio: COMMON NORMALS: regular rate, regular rhythm, S1 normal heart sound present, S2 normal heart sound present and No murmurs present (Cardio) RATE: regular rate RHYTHM: regular rhythm HEART SOUNDS: S1 normal heart sound present and S2 normal heart sound present GI: COMMON NORMALS: Normal to inspection, nondistended, normoactive bowel sounds present, Soft to palpation and non-tender INSPECTION: Yes central obesity PALPATION: Yes Soft to palpation Extremity: COMMON NORMALS: normal to inspection, full ROM, no clubbing, cyanosis or edema and no pedal edema Neuro: COMMON NORMALS: patient oriented x3, moves all extremities, no focal motor deficits and no sensory deficits noted SENSORIUM/ORIENTATION: Yes alert Psych: COMMON NORMALS: mental status grossly normal, Normal thought process present, cooperative, normal affect and speech normal SPEECH: Yes normal speech THOUGHT PROCESS: Normal thought process present Skin: COMMON NORMALS: no rashes or lesions noted, no jaundice, no petechiae and no mottling GENERAL SKIN EXAM: no rashes or lesions noted Data : 07/03/20 04:00 07/03/20 04:00 Micro: Microbiology 07/01/20 22:25 Blood Culture - Preliminary Blood 07/01/20 22:40 Blood Culture - Preliminary Blood NEGATIVE TO DATE 07/01/20 20:50 MRSA Culture - Final Nose A&P Assessment and plan (1) Acute respiratory failure with hypoxia: -Presented in significant distress as evidenced by tachypnea, hypoxia, increased respiratory effort not improved with use of nasal cannula. Initially required BiPAP support, has been weaned to high flow nasal cannula -Initial ABG showing significant hypoxia with PO2 of 51.6. Follow-up ABG following use of BiPAP improved to 77 -BiPAP use as needed vs. 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 -Close monitoring of respiratory status -continue remdesivir (day 3) and dexamethasone -Due to noted evidence of infection, inability to rule out bacterial super- infection, and degree of respiratory distress on admission, on empiric antibiotics -Breathing treatments as needed, further supportive care including pulmonary toilet, incentive spirometry, zinc, vitamin C, antitussives as needed -continue to monitor vital signs -Telemetry monitoring -blood cx: 1/4 bottles positive for GPC, order repeat set though likely contami nant -negative bacterial antigens, influenza screen; f/u Legionella, MRSA -continue to trend inflammatory markers; improving -noted leukocytosis with neutrophilic predominance now resolved -repeat imaging tomorrow to monitor progression Status: Acute (3) COPD exacerbation: -As noted above -not oxygen dependent at baseline Status: Acute (4) GAB (acute kidney injury): -likely secondary to dehydration from poor oral intake -d/c IVF due to concern for developing fluid overload; encourage oral hydration -continue to monitor renal function; gradually improving -avoid nephrotoxins, renally dose meds Status: Acute (5) Atrial flutter: -Telemetry monitoring -continue BB -continue Eliquis Status: Chronic Qualifiers: Atrial flutter type: unspecified Qualified Code(s): I48.92 - Unspecified atrial flutter (6) BPH NOS w ur obs/LUTS: -continue tamsulosin Status: Chronic (7) Coronary artery disease: -Echo (2018): EF=55%, no valvular abnormalities Status: Chronic Additional A&P Information -Cardiac diet as tolerated -GI ppx with famotidine -DVT ppx not needed as on Eliquis -Dispo: home -Code status: FULL code -daughter Rika Rendon updated Attestations Medical Necessity Statement*: Patient requires hospitalization for continued treatment of COVID-19 pneumonia, higher oxygen requirement today, needs continued respiratory status monitoring, antibiotic and antiviral treatment. Time Spent in Patient Care: 16 - 35 minutes (>than 50% of time spent in counselling and/or direct pt care on unit) . 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
[2020-07-03] MEDS: bumetanide 0.25 mg/mL SDV 10 mL 1 MG IV (14:05)
--- NOTE | 2020-07-03 16:49 | PC.RESP ---
Pulmonary Rehab packet sent to patient.
[2020-07-03] MEDS: azithromycin 500 MG in sodium chloride 0.9% 250 ML 250 MG IV (20:11)
[2020-07-03] MEDS: tamsulosin 0.4 mg Capsule PO (20:12)
--- NOTE | 2020-07-03 23:05 | PC.NURSE ---
ASSUMED CARE OF PT. PT WANTED TRANSFERRED FROM CHAIR TO BED. THIS NURSE AND MENU PLANNER WITH MINIMAL ASSISTANCE HELPED PT. PT STATED THAT THE BED WAS MUCH BETTER THAN THE CHAIR. DENIES PAIN. WILL CONTINUE TO MONITOR.
[2020-07-04] VITALS (27 sets, daily range): BP systolic 101–145; BP diastolic 53–88; PULSE 62–112; RESP 11–37; TEMP 36.5–37.1; O2SAT 91–100
[2020-07-04 04:30] LABS: Platelet Count 486 10^3/cmm (130-400)
[2020-07-04 05:03] LABS: Alanine Aminotransferase 32 U/L (0-41); Albumin Level 2.7 g/dL (3.5-5.2); Alkaline Phosphatase 68 IU/L (40-130); Anion Gap 14.8 (5-19); Aspartate Amino Transferase 35 U/L (0-40); Carbon Dioxide 19 mmol/L (22-29); Chloride 115 mmol/L (98-107); Globulin 2.9 g/dL (1.3-4.6); Glucose 142 mg/dL (65-115); Osmolality Calculated 327 mOsm/kg (285-295); Potassium 3.8 mmol/L (3.5-5.1); Sodium 145 mmol/L (136-145); Total Bilirubin 0.5 mg/dL (0.15-1.2); Total Protein 5.6 g/dL (6.6-8.7)
[2020-07-04 05:05] LABS: Blood Urea Nitrogen 81 mg/dL (8-23)
--- NOTE | 2020-07-04 05:34 | PC.NURSE ---
PT IS RESTING IN BED AT THIS TIME. PT DENIES PAIN. HAS 0 C/O AT THIS TIME. WILL CONTINUE TO MONITOR.
--- NOTE | 2020-07-04 06:00 | XRR_ITS ---
PROCEDURE INFORMATION: Exam: XR Chest, 1 View Exam date and time: 07/04/2020 6:39 AM Age: 80 years old Clinical indication: Shortness of breath; Additional info: Progression of pneumonia TECHNIQUE: Imaging protocol: XR of the chest Views: 1 view. COMPARISON: CR XR chest 1V portable [id number] 07/01/2020 2:45 PM FINDINGS: Lungs: There are predominantly peripheral pulmonary consolidations throughout both lungs which are progressive. No overt interstitial edema. Pleural space: Unremarkable. No pleural effusion. No pneumothorax. Heart/Mediastinum: Cardiac enlargement. Vasculature: Calcified thoracic aorta. Bones/joints: Osteopenia. Plate fixation cervical spine. Other findings: No large volume effusion. XR/XR chest 1V portable [id number] IMPRESSION: 1. Progression of bilateral predominantly peripheral pulmonary consolidations throughout both lungs with partial airspace component. Findings are consistent with history of viral pneumonia. 2. Cardiac enlargement.
[2020-07-04 06:30] LABS: Fibrinogen 497 mg/dL (174-498)
[2020-07-04 06:33] LABS: D Dimer 1.25 ug/mIFEU (0-0.59)
[2020-07-04 08:21] LABS: C Reactive Protein 56.9 mg/L (0.0-4.9)
[2020-07-04 08:33] LABS: Lactate Dehydrogenase 379 U/L (135-225); NT Pro B Type Natriuretic Pept 9862 pg/mL (0-450)
[2020-07-04 08:49] LABS: Ferritin 1199 ng/mL (30-400)
[2020-07-04] MEDS: metoprolol tartrate 25 mg Tablet PO ×2 (08:53→17:03)
[2020-07-04] MEDS: zinc gluconate 50 mg Tablet PO (08:53)
[2020-07-04] MEDS: ascorbic acid 500 mg Tablet PO (08:53)
[2020-07-04] MEDS: atorvastatin 40 mg Tablet PO (08:53)
[2020-07-04] MEDS: famotidine 20 mg Tablet PO ×2 (08:53→17:03)
[2020-07-04] MEDS: apixaban 5 mg Tablet PO ×2 (08:53→17:03)
[2020-07-04] MEDS: dexamethasone 4 mg/mL INJ 6 MG IVP (08:53)
--- NOTE | 2020-07-04 10:29 | PC.SOCIAL ---
Pg 2 IMM Explained to pt, via phone, Pg 2 IMM. No questions voiced. Signed, dated, & timed a copy for chart.
--- NOTE | 2020-07-04 14:35 | PM.PN ---
Subjective Subjective: Interval history: On 3 L nasal cannula, hemodynamically stable, afebrile, decreasing inflammatory markers, slight increase in renal function today part of which could be due to diuresis given yesterday. On day 4 of remdesivir. Had 1000 mL urine output overnight. Encouraged out of bed activity but fatigued quickly on trying to ambulate and desaturated some so returned to recliner. Daughter updated. Medications: Reviewed: Yes Medication Review Details: Active Medications Generic Name Dose Route Start Last Admin Trade Name Freq PRN Reason Stop Dose Admin Acetaminophen 650 mg 07/01/20 20:14 Tylenol PO Q6H PRN MILD PAIN Albuterol Sulfate 2 puff 07/01/20 20:14 Ventolin INHALATION Q4H.RESPIRATORY P RN SHORTNESS OF DAPHNE TH Apixaban 5 mg 07/01/20 20:14 07/04/20 08:53 Eliquis PO 5 mg BID TATI Administration Ascorbic Acid 500 mg 07/02/20 09:00 07/04/20 08:53 Vitamin C PO 500 mg DAILY TATI Administration Atorvastatin Calci um 40 mg 07/02/20 09:00 07/04/20 08:53 Lipitor PO 40 mg DAILY TATI Administration Benzonatate 100 mg 07/01/20 20:14 Tessalon Pearls PO TID PRN COUGH Dexamethasone 6 mg 07/02/20 09:00 07/04/20 08:53 Decadron IVP 6 mg Q24H TATI Administration Famotidine 20 mg 07/01/20 20:14 07/04/20 08:53 Pepcid Tab PO 20 mg BID TATI Administration remdesivir (EUA) 1 00 mg/ 100 mls @ 100 mls /hr 07/02/20 14:15 07/03/20 14:05 Sodium Chloride IV 07/05/20 15:14 100 mls/hr Q24H TATI Administration Azithromycin 500 m g/ Sodium 250 mls @ 250 mls /hr 07/01/20 20:14 07/03/20 21:11 Chloride IV Infused Q24H TATI Infusion Protocol Metoprolol Tartrat e 25 mg 07/02/20 11:35 07/04/20 08:53 Lopressor PO 25 mg BID TATI Administration Morphine Sulfate 2 mg 07/01/20 20:14 Morphine IVP Q4H PRN SEVERE PAIN Non-Formulary Medi cation 50 mcg 07/02/20 09:00 07/04/20 08:54 Cholecalciferol (Vitamin D3) PO Not Given DAILY TATI Ondansetron HCl 4 mg 07/01/20 20:14 Zofran IVP Q6H PRN NAUSEA AND VOMITI NG Fluticasone/Salmet adilene 1 puff 07/02/20 08:00 07/04/20 08:17 Advair Diskus 25 0-50 INHALATION 1 puff BID.RESPIRATORY S CH Administration Tamsulosin HCl 0.4 mg 07/01/20 21:00 07/03/20 20:12 Flomax PO 0.4 mg BEDTIME TATI Administration Zinc Gluconate 50 mg 07/02/20 09:00 07/04/20 08:53 Zinc Gluconate PO 50 mg DAILY TATI Administration No Known Allergies Allergy (Unverified 01/07/20 13:06) Vitals/I&O/Wt Last Vital Signs Temp 97.7 F 07/04/20 09:00 Pulse 79 07/04/20 10:00 Resp 22 H 07/04/20 10:00 BP 109/64 07/04/20 10:00 Pulse Ox 96 07/04/20 10:00 07/03/20 07/04/20 07/04/20 22:59 06:59 14:59 Intake Total 610 / 730 120 / 850 450 / 450 Output Total 2025 / 2325 600 / 2925 600 / 600 Balance -1415 / -1595 -480 / -2075 -150 / -150 Weight last 48 hrs Weight 87.543 kg Physical Exam Const: COMMON NORMALS: no acute distress, patient oriented x3 and alert GENERAL APPEARANCE: cooperative and comfortable ORIENTATION/CONSCIOUSNESS: Yes awake OTHER: -resting in bed, in good spirits HENMT: COMMON NORMALS: normocephalic, atraumatic and moist oral mucous membranes HEAD & SCALP: normocephalic and atraumatic GENERAL EAR: hearing grossly impaired Eye: COMMON NORMALS: Equal, round and reactive pupils present, EOMs intact bilaterally and conjunctivae normal CONJUNCTIVA: Yes conjunctivae normal PUPIL: Yes Equal, round and reactive pupils present Neck/C-Spine: COMMON NORMALS: full ROM GENERAL: Yes normal visual inspection and Yes trachea midline Resp: COMMON NORMALS: No retractions and No use of accessory muscles EFFORT & INSPECTION: Yes able to speak in complete sentences, Yes symmetric chest movement and Yes tachypneic AUSCULTATION: diminished lung sounds OTHER: -on 3 L NC -conversational dyspnea Cardio: COMMON NORMALS: regular rate, regular rhythm, S1 normal heart sound present, S2 normal heart sound present and No murmurs present (Cardio) RATE: regular rate RHYTHM: regular rhythm HEART SOUNDS: S1 normal heart sound present and S2 normal heart sound present GI: COMMON NORMALS: Normal to inspection, nondistended, normoactive bowel sounds present, Soft to palpation and non-tender INSPECTION: Yes central obesity PALPATION: Yes Soft to palpation Extremity: COMMON NORMALS: normal to inspection, full ROM, no clubbing, cyanosis or edema and no pedal edema Neuro: COMMON NORMALS: patient oriented x3, moves all extremities, no focal motor deficits and no sensory deficits noted SENSORIUM/ORIENTATION: Yes alert Psych: COMMON NORMALS: mental status grossly normal, Normal thought process present, cooperative, normal affect and speech normal SPEECH: Yes normal speech THOUGHT PROCESS: Normal thought process present Skin: COMMON NORMALS: no rashes or lesions noted, no jaundice, no petechiae and no mottling GENERAL SKIN EXAM: no rashes or lesions noted Data : 07/04/20 04:00 07/04/20 04:00 Micro: Microbiology 07/03/20 17:20 Blood Culture - Preliminary Blood SPECIMEN COLLECTED 07/03/20 17:20 Blood Culture - Preliminary Blood SPECIMEN COLLECTED A&P Assessment and plan (1) Acute respiratory failure with hypoxia: -Presented in significant distress as evidenced by tachypnea, hypoxia, increased respiratory effort not improved with use of nasal cannula. Initially required BiPAP support, has been weaned to high flow nasal cannula -Initial ABG showing significant hypoxia with PO2 of 51.6. Follow-up ABG following use of BiPAP improved to 77 -BiPAP use as needed vs. 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 -weaned off BiPAP support -Close monitoring of respiratory status -continue remdesivir (day 4) and dexamethasone -Due to noted evidence of infection, inability to rule out bacterial super-infection, and degree of respiratory distress on admission, on empiric antibiotics -Breathing treatments as needed, further supportive care including pulmonary toilet, incentive spirometry, zinc, vitamin C, antitussives as needed -continue to monitor vital signs -Telemetry monitoring -blood cx: 09/07 bottles positive for GPC, ordered repeat set though likely contaminant -negative bacterial antigens, influenza screen, MRSA; f/u Legionella -continue to trend inflammatory markers; improving -noted leukocytosis with neutrophilic predominance now resolved -repeat imaging today with reported progression of bilateral consolidations Status: Acute (3) COPD exacerbation: -As noted above -not oxygen dependent at baseline Status: Acute (4) GAB (acute kidney injury): -likely secondary to dehydration from poor oral intake -off IVF due to concern for developing fluid overload; encourage oral hydration -continue to monitor renal function; gradually improving -avoid nephrotoxins, renally dose meds Status: Acute (5) Atrial flutter: -Telemetry monitoring -continue BB -continue Eliquis Status: Chronic Qualifiers: Atrial flutter type: unspecified Qualified Code(s): I48.92 - Unspecified atrial flutter (6) BPH NOS w ur obs/LUTS: -continue tamsulosin Status: Chronic (7) Coronary artery disease: -Echo (2018): EF=55%, no valvular abnormalities Status: Chronic Additional A&P Information -Cardiac diet as tolerated -GI ppx with famotidine -DVT ppx not needed as on Eliquis -Dispo: home -Code status: FULL code -daughter Rika Rendon updated Attestations Medical Necessity Statement*: Patient requires hospitalization for continued treatment of COVID-19 pneumonia, on continued antibiotic and antiviral treatment. Time Spent in Patient Care: 16 - 35 minutes (>than 50% of time spent in counselling and/or direct pt care on unit). Coding Level of Care Code Acute Instructor Ballroom Dancing for [facility] Fwd Exam Comprehensive Diagnoses Acute respiratory failure with hypoxia J96.01 Pneumonia due to COVID-19 virus U07.1; J12.89 COPD exacerbation J44.1 GAB (acute kidney injury) N17.9 Atrial flutter I48.92 Atrial flutter type: unspecified BPH NOS w ur obs/LUTS N40.1 Coronary artery disease I25.10
[2020-07-04] MEDS: tamsulosin 0.4 mg Capsule PO (20:28)
[2020-07-04] MEDS: azithromycin 500 MG in sodium chloride 0.9% 250 ML 150 MG IV (20:29)
[2020-07-05] VITALS (27 sets, daily range): BP systolic 92–142; BP diastolic 55–92; PULSE 59–101; RESP 17–38; TEMP 36.6–37.2; O2SAT 88–100
[2020-07-05 04:04] LABS: Basophils % 0.2 %; Hematocrit 34.4 % (42.0-52.0); Hemoglobin 11.4 g/dL (11.7-16.6); Lymphocytes % 8.9 %; Mean Corpuscular HGB Conc 33.1 g/dL (30.0-36.0); Mean Corpuscular Hemoglobin 28.4 pg (28.0-34.0); Mean Corpuscular Volume 85.6 fL (80-94); Mean Platelet Volume 8.8 fL (7.4-10.4); Monocytes % 9.1 %; Neutrophils # 8.49 10^3/uL (1.8-7.7); Neutrophils % 76.3 %; Nucleated Red Blood Cells % 0.2 %; Platelet Count 490 10^3/cmm (130-400); Red Blood Count 4.02 10^6/uL (4.1-5.3); Red Cell Distribution Width 14.8 % (12.1-15.1); White Blood Count 11.1 10^3/uL (4.0-10.0)
[2020-07-05 04:35] LABS: Blood Urea Nitrogen 76 mg/dL (8-23); C Reactive Protein 48.4 mg/L (0.0-4.9); Calcium 7.7 mg/dL (8.5-10.5); Carbon Dioxide 19 mmol/L (22-29); Chloride 114 mmol/L (98-107); Glucose 120 mg/dL (65-115); Osmolality Calculated 322 mOsm/kg (285-295); Sodium 144 mmol/L (136-145)
[2020-07-05 04:37] LABS: Ferritin 925 ng/mL (30-400); Lactate Dehydrogenase 350 U/L (135-225); NT Pro B Type Natriuretic Pept 5180 pg/mL (0-450)
[2020-07-05 04:47] LABS: Fibrinogen 511 mg/dL (174-498)
[2020-07-05 04:52] LABS: D Dimer 1.48 ug/mIFEU (0-0.59)
[2020-07-05 05:33] LABS: Slide Review Slide Review Perform
[2020-07-05 07:40] LABS: Glucose Point of Care 96 mg/dL (70-110)
[2020-07-05] MEDS: apixaban 5 mg Tablet PO ×2 (08:39→18:18)
[2020-07-05] MEDS: benzonatate 100 mg Capsule PO (08:39)
[2020-07-05] MEDS: ascorbic acid 500 mg Tablet PO (08:39)
[2020-07-05] MEDS: atorvastatin 40 mg Tablet PO (08:39)
[2020-07-05] MEDS: metoprolol tartrate 25 mg Tablet PO ×2 (08:39→18:18)
[2020-07-05] MEDS: famotidine 20 mg Tablet PO ×2 (08:39→18:18)
[2020-07-05] MEDS: zinc gluconate 50 mg Tablet PO (08:39)
[2020-07-05] MEDS: dexamethasone 4 mg/mL INJ 6 MG IVP (09:35)
[2020-07-05 12:04] LABS: Glucose Point of Care 112 mg/dL (70-110)
--- NOTE | 2020-07-05 13:42 | P.PN_ITS ---
Subjective Subjective: Interval history: Hemodynamically stable, afebrile, on 2 L NC, improving renal function and inflammatory markers, on day 5 of remdesevir. Had 800 mL urine output overnight. Resting quietly in bed, no apparent distress, no acute overnight events. In good spirits. Daughter Rika mccarthy. Medications: Reviewed: Yes Medication Review Details: Active Medications Generic Name Dose Route Start Last Admin Trade Name Freq PRN Reason Stop Dose Admin Acetaminophen 650 mg 07/01/20 20:14 Tylenol PO Q6H PRN MILD PAIN Albuterol Sulfate 2 puff 07/01/20 20:14 Ventolin INHALATION Q4H.RESPIRATORY P RN SHORTNESS OF DAPHNE TH Apixaban 5 mg 07/01/20 20:14 07/05/20 08:39 Eliquis PO 5 mg BID TATI Administration Ascorbic Acid 500 mg 07/02/20 09:00 07/05/20 08:39 Vitamin C PO 500 mg DAILY TATI Administration Atorvastatin Calci um 40 mg 07/02/20 09:00 07/05/20 08:39 Lipitor PO 40 mg DAILY TATI Administration Benzonatate 100 mg 07/01/20 20:14 07/05/20 08:39 Tessalon Pearls PO 100 mg TID PRN Administration COUGH Dexamethasone 6 mg 07/02/20 09:00 07/05/20 09:35 Decadron IVP 6 mg Q24H TATI Administration Famotidine 20 mg 07/01/20 20:14 07/05/20 08:39 Pepcid Tab PO 20 mg BID TATI Administration remdesivir (EUA) 1 00 mg/ 100 mls @ 100 mls /hr 07/02/20 14:15 07/05/20 13:14 Sodium Chloride IV 07/05/20 15:14 100 mls/hr Q24H TATI Administration Azithromycin 500 m g/ Sodium 250 mls @ 250 mls /hr 07/01/20 20:14 07/05/20 00:30 Chloride IV Infused Q24H TATI Infusion Protocol Metoprolol Tartrat e 25 mg 07/02/20 11:35 07/05/20 08:39 Lopressor PO 25 mg BID TATI Administration Morphine Sulfate 2 mg 07/01/20 20:14 Morphine IVP Q4H PRN SEVERE PAIN Non-Formulary Medi cation 50 mcg 07/02/20 09:00 07/05/20 08:43 Cholecalciferol (Vitamin D3) PO Not Given DAILY TATI Ondansetron HCl 4 mg 07/01/20 20:14 Zofran IVP Q6H PRN NAUSEA AND VOMITI NG Fluticasone/Salmet adilene 1 puff 07/02/20 08:00 07/04/20 19:44 Advair Diskus 25 0-50 INHALATION 1 puff BID.RESPIRATORY S CH Administration Tamsulosin HCl 0.4 mg 07/01/20 21:00 07/04/20 20:28 Flomax PO 0.4 mg BEDTIME TATI Administration Zinc Gluconate 50 mg 07/02/20 09:00 07/05/20 08:39 Zinc Gluconate PO 50 mg DAILY TATI Administration No Known Allergies Allergy (Unverified 01/07/20 13:06) Vitals/I&O/Wt Last Vital Signs Temp 97.9 F 07/05/20 07:00 Pulse 87 07/05/20 11:00 Resp 24 H 07/05/20 11:00 BP 137/79 07/05/20 09:00 Pulse Ox 95 07/05/20 11:00 07/04/20 07/05/20 07/05/20 23:59 06:59 14:59 Intake Total 240 / 240 Output Total 300 / 300 Balance -60 / -60 Weight last 48 hrs Weight 87.543 kg Weight 87.543 kg Physical Exam Const: COMMON NORMALS: no acute distress, patient oriented x3 and alert GENERAL APPEARANCE: cooperative and comfortable ORIENTATION/CONSCIOUSNESS: Yes awake OTHER: -resting in bed, in good spirits HENMT: COMMON NORMALS: normocephalic, atraumatic and moist oral mucous membranes HEAD & SCALP: normocephalic and atraumatic GENERAL EAR: hearing grossly impaired Eye: COMMON NORMALS: Equal, round and reactive pupils present, EOMs intact bilaterally and conjunctivae normal CONJUNCTIVA: Yes conjunctivae normal PUPIL: Yes Equal, round and reactive pupils present Neck/C-Spine: COMMON NORMALS: full ROM GENERAL: Yes normal visual inspection and Yes trachea midline Resp: COMMON NORMALS: No retractions and No use of accessory muscles EFFORT & INSPECTION: Yes able to speak in complete sentences, Yes symmetric chest movement and Yes tachypneic AUSCULTATION: diminished lung sounds OTHER: - on 2 L NC -conversational dyspnea (minimal) Cardio: COMMON NORMALS: regular rate, regular rhythm, S1 normal heart sound present, S2 normal heart sound present and No murmurs present (Cardio) RATE: regular rate RHYTHM: regular rhythm HEART SOUNDS: S1 normal heart sound present and S2 normal heart sound present GI: COMMON NORMALS: Normal to inspection, nondistended, normoactive bowel sounds present, Soft to palpation and non-tender INSPECTION: Yes central obesity PALPATION: Yes Soft to palpation Extremity: COMMON NORMALS: normal to inspection, full ROM, no clubbing, cyanosis or edema and no pedal edema Neuro: COMMON NORMALS: patient oriented x3, moves all extremities, no focal motor deficits and no sensory deficits noted SENSORIUM/ORIENTATION: Yes alert Psych: COMMON NORMALS: mental status grossly normal, Normal thought process present, cooperative, normal affect and speech normal SPEECH: Yes normal speech THOUGHT PROCESS: Normal thought process present Skin: COMMON NORMALS: no rashes or lesions noted, no jaundice, no petechiae and no mottling GENERAL SKIN EXAM: no rashes or lesions noted Data : 07/05/20 04:00 07/05/20 04:00 Micro: Microbiology 07/01/20 22:25 Blood Culture - Preliminary Blood Staphylococcus species 07/03/20 17:20 Blood Culture - Preliminary Blood NEGATIVE TO DATE 07/03/20 17:20 Blood Culture - Preliminary Blood NEGATIVE TO DATE A&P Assessment and plan (1) Acute respiratory failure with hypoxia: -Presented in significant distress as evidenced by tachypnea, hypoxia, increased respiratory effort not improved with use of nasal cannula. Initially required BiPAP support, has been weaned to nasal cannula -Initial ABG showing significant hypoxia with PO2 of 51.6. Follow-up ABG following use of BiPAP improved to 77 -BiPAP use as needed vs. 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 -weaned off BiPAP support -Close monitoring of respiratory status -continue remdesivir (day 5) and dexamethasone -Due to noted evidence of infection, inability to rule out bacterial super- infection, and degree of respiratory distress on admission, on empiric antibiot ics -Breathing treatments as needed, further supportive care including pulmonary toilet, incentive spirometry, zinc, vitamin C, antitussives as needed -continue to monitor vital signs -Telemetry monitoring -blood cx: 09/07 bottles positive for staph species; repeat set prelim negative -negative bacterial antigens, influenza screen, MRSA; f/u Legionella -continue to trend inflammatory markers; improving -noted minimal leukocytosis with neutrophilic predominance -repeat imaging with reported progression of bilateral consolidations Status: Acute (3) COPD exacerbation: -As noted above -not oxygen dependent at baseline Status: Acute (4) GAB (acute kidney injury): -likely secondary to dehydration from poor oral intake -off IVF due to concern for developing fluid overload; encourage oral hydration -continue to monitor renal function; gradually improving -avoid nephrotoxins, renally dose meds Status: Acute (5) Atrial flutter: -Telemetry monitoring -continue BB -continue Eliquis Status: Chronic Qualifiers: Atrial flutter type: unspecified Qualified Code(s): I48.92 - U nspecified atrial flutter (6) BPH NOS w ur obs/LUTS: -continue tamsulosin Status: Chronic (7) Coronary artery disease: -Echo (2018): EF=55%, no valvular abnormalities Status: Chronic Additional A&P Information -Cardiac diet as tolerated -Physical deconditioning; fall precautions, PT evaluation requested -GI ppx with famotidine -DVT ppx not needed as on Eliquis -Dispo: home; in light of hospitalization and physical deconditioning, would benefit from home health services -Code status: FULL code -daughter Rika Rendon updated Attestations Medical Necessity Statement*: Patient requires hospitalization for continued management of COVID-19 pneumonia, on antiviral and antibiotic treatment. Time Spent in Patient Care: 16 - 35 minutes (>than 50% of time spent in counselling and/or direct pt care on unit) . Coding Level of Care Code Acute Aquatic Scientist for [facility] Diagnoses Acute respiratory failure with hypoxia J96.01 Pneumonia due to COVID-19 virus U07.1; J12.89 COPD exacerbation J44.1 GAB (acute kidney injury) N17.9 Atrial flutter I48.92 Atrial flutter type: unspecified BPH NOS w ur obs/LUTS N40.1 Coronary artery disease I25.10
[2020-07-05 16:46] LABS: Glucose Point of Care 138 mg/dL (70-110)
[2020-07-05] MEDS: azithromycin 500 MG in sodium chloride 0.9% 250 ML 150 MG IV (21:06)
[2020-07-05] MEDS: tamsulosin 0.4 mg Capsule PO (21:07)
[2020-07-06] VITALS (27 sets, daily range): BP systolic 93–151; BP diastolic 56–109; PULSE 63–115; RESP 11–43; TEMP 36.6–36.9; O2SAT 90–100
[2020-07-06 04:24] LABS: Basophils % 0.1 %; Eosinophils % 0.1 %; Hematocrit 33.2 % (42.0-52.0); Hemoglobin 11.1 g/dL (11.7-16.6); Lymphocytes % 9.3 %; Mean Corpuscular HGB Conc 33.4 g/dL (30.0-36.0); Mean Corpuscular Hemoglobin 28.5 pg (28.0-34.0); Mean Corpuscular Volume 85.3 fL (80-94); Mean Platelet Volume 8.9 fL (7.4-10.4); Monocytes # 0.9 10^3/uL (0.2-0.9); Neutrophils # 8.75 10^3/uL (1.8-7.7); Nucleated Red Blood Cells % 0.2 %; Platelet Count 474 10^3/cmm (130-400); Red Blood Count 3.89 10^6/uL (4.1-5.3); Red Cell Distribution Width 14.8 % (12.1-15.1); White Blood Count 11.2 10^3/uL (4.0-10.0)
[2020-07-06 04:42] LABS: Fibrinogen 451 mg/dL (174-498)
[2020-07-06 04:45] LABS: Blood Urea Nitrogen 67 mg/dL (8-23); C Reactive Protein 42.1 mg/L (0.0-4.9); Calcium 7.9 mg/dL (8.5-10.5); Carbon Dioxide 18 mmol/L (22-29); Chloride 113 mmol/L (98-107); Ferritin 820 ng/mL (30-400); Glucose 115 mg/dL (65-115); Lactate Dehydrogenase 339 U/L (135-225); Osmolality Calculated 312 mOsm/kg (285-295); Sodium 141 mmol/L (136-145)
[2020-07-06 04:46] LABS: D Dimer 1.36 ug/mIFEU (0-0.59)
[2020-07-06] MEDS: metoprolol tartrate 25 mg Tablet PO ×2 (08:47→17:12)
[2020-07-06] MEDS: famotidine 20 mg Tablet PO ×2 (08:47→17:12)
[2020-07-06] MEDS: ascorbic acid 500 mg Tablet PO (08:47)
[2020-07-06] MEDS: apixaban 5 mg Tablet PO ×2 (08:47→17:12)
[2020-07-06] MEDS: atorvastatin 40 mg Tablet PO (08:47)
[2020-07-06] MEDS: zinc gluconate 50 mg Tablet PO (08:47)
[2020-07-06] MEDS: dexamethasone 4 mg/mL INJ 6 MG IVP (08:56)
--- NOTE | 2020-07-06 15:13 | P.PN_ITS ---
Subjective Subjective: Interval history: He says that he has been improving. Breathing has been getting gradually better. He has been trying to get up and around, however, still gets fatigued with exertion. At the time of my visit was not yet seen by PT, but was seeing a little bit later. Participating with them, but does get hypoxic. At home he lives with his who is frail, and of whom he has been taking care of. Vitals/I&O/Wt Last Vital Signs Temp 98.2 F 07/06/20 12:00 Pulse 78 07/06/20 12:00 Resp 27 H 07/06/20 12:00 BP 116/67 07/06/20 12:00 Pulse Ox 100 07/06/20 12:00 07/06/20 07/06/20 07/06/20 06:59 14:59 22:59 Intake Total 1200 / 1200 Output Total 400 / 1550 Balance -400 / -830 1200 / 1200 Weight last 48 hrs Weight 93.531 kg Weight 87.543 kg Physical Exam Const: COMMON NORMALS: no acute distress, patient oriented x3 and alert ORIENTATION/CONSCIOUSNESS: Yes awake OTHER: Pleasant. In good spirits. HENMT: COMMON NORMALS: oropharynx normal Neck/C-Spine: COMMON NORMALS: no JVD Resp: COMMON NORMALS: normal respiratory effort and clear to auscultation bilaterally AUSCULTATION: clear to auscultation bilaterally Cardio: COMMON NORMALS: no JVD, regular rhythm, S1 normal heart sound present, S2 normal heart sound present and No murmurs present (Cardio) RHYTHM: regular rhythm HEART SOUNDS: S1 normal heart sound present and S2 normal heart sound present GI: COMMON NORMALS: Normal to inspection, nondistended, normoactive bowel sounds present, Soft to palpation and non-tender PALPATION: Yes Soft to palpation Extremity: COMMON NORMALS: no joint enlargement and no pedal edema Neuro: COMMON NORMALS: patient oriented x3 and moves all extremities SENSORIUM/ORIENTATION: Yes alert Skin: COMMON NORMALS: no rashes or lesions noted GENERAL SKIN EXAM: no rashes or lesions noted Data : 07/06/20 03:53 07/06/20 03:53 Micro: Microbiology 07/01/20 22:25 Blood Culture - Preliminary Blood Staphylococcus species A&P Assessment and plan (1) Acute respiratory failure with hypoxia: Hypoxic respiratory failure has been gradually improving. This morning he is on 2 L nasal cannula. He does get tired and hypoxic with exertion. Concern has been that at home he lives with his frail of whom he has been taking care of. He otherwise denies any chest pain or pressure, no nausea vomiting, diarrhea. No headache. We will go ahead and transfer him upstairs out of viral ICU. Continue attempts to wean down oxygen. Work with PT. D-dimer is little bit better today at 1.36. CRP decreased to bit further. Continue Decadron. Continue empiric azithromycin. -Presented in significant distress as evidenced by tachypnea, hypoxia, increased respiratory effort not improved with use of nasal cannula. Initially required BiPAP support. -Respiratory distress likely triggered by Covid 19 pneumonia and acute COPD exacerbation Discussed with sr. social media & mobile manager. Will need additional supervision/assistance at home in addition to home health. shipping services sales representative will look into whether grandchildren would be available to assist. Status: Acute (2) Pneumonia due to COVID-19 virus: Severe COVID-19 pneumonia. Gradually improving. 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 Follow-up final results. -negative bacterial antigens, influenza screen, MRSA; f/u Legionella Repeat inflammatory markers; improving -noted minimal leukocytosis with neutrophilic predominance -repeat imaging with reported progression of bilateral consolidations Status: Acute (3) COPD exacerbation: -As noted above -not oxygen dependent at baseline Status: Acute (4) GAB (acute kidney injury): Improving. Creatinine down to 1.5. Hold off additional IVF. Avoid nephrotoxins. -likely secondary to dehydration from poor oral intake Status: Acute (5) Atrial flutter: -Telemetry monitoring -continue BB -continue Eliquis Status: Chronic Qualifiers: Atrial flutter type: unspecified Qualified Code(s): I48.92 - Unspecified atrial flutter (6) BPH NOS w ur obs/LUTS: -continue tamsulosin Status: Chronic (7) Coronary artery disease: -Echo (2018): EF=55%, no valvular abnormalities Status: Chronic Additional A&P Information -Cardiac diet as tolerated -Physical deconditioning; fall precautions, PT, HH arrangements. If condition not improving, and not adequate support at home may require SNF. -GI ppx with famotidine -DVT ppx not needed as on Eliquis -Code status: FULL code Attestations Medical Necessity Statement*: Continue admission for assessment management of severe COVID-19 pneumonia with hypoxic respiratory failure. Complicated by acute kidney injury. Disposition planning. Coding Level of Care Code Acute Flotation Tender for [facility] Fwd Diagnoses Acute respiratory failure with hypoxia J96.01 Pneumonia due to COVID-19 virus U07.1; J12.89 COPD exacerbation J44.1 GAB (acute kidney injury) N17.9 Atrial flutter I48.92 Atrial flutter type: unspecified BPH NOS w ur obs/LUTS N40.1 Coronary artery disease I25.10
[2020-07-06 16:27] LABS: Glucose Point of Care 157 mg/dL (70-110)
[2020-07-06] MEDS: tamsulosin 0.4 mg Capsule PO (21:48)
[2020-07-06] MEDS: azithromycin 500 MG in sodium chloride 0.9% 250 ML 150 MG IV (21:48)
[2020-07-07] VITALS (18 sets, daily range): BP systolic 97–156; BP diastolic 61–93; PULSE 57–99; RESP 17–31; TEMP 36.6–36.9; O2SAT 88–100
[2020-07-07 04:03] LABS: Basophils % 0.2 %; Eosinophils % 0.1 %; Hematocrit 35.2 % (42.0-52.0); Hemoglobin 11.6 g/dL (11.7-16.6); Lymphocytes # 1.2 10^3/uL (0.8-4.8); Lymphocytes % 9.5 %; Mean Corpuscular Hemoglobin 28.6 pg (28.0-34.0); Mean Corpuscular Volume 86.9 fL (80-94); Mean Platelet Volume 8.8 fL (7.4-10.4); Monocytes # 0.9 10^3/uL (0.2-0.9); Monocytes % 7.4 %; Neutrophils % 80.1 %; Nucleated Red Blood Cells % 0 %; Platelet Count 464 10^3/cmm (130-400); Red Blood Count 4.05 10^6/uL (4.1-5.3); Red Cell Distribution Width 14.9 % (12.1-15.1); White Blood Count 12.7 10^3/uL (4.0-10.0)
[2020-07-07 04:46] LABS: Alanine Aminotransferase 34 U/L (0-41); Albumin Level 2.4 g/dL (3.5-5.2); Alkaline Phosphatase 76 IU/L (40-130); Anion Gap 12.2 (5-19); Aspartate Amino Transferase 28 U/L (0-40); Blood Urea Nitrogen 60 mg/dL (8-23); C Reactive Protein 29.2 mg/L (0.0-4.9); Calcium 8.2 mg/dL (8.5-10.5); Carbon Dioxide 20 mmol/L (22-29); Chloride 115 mmol/L (98-107); Globulin 3.1 g/dL (1.3-4.6); Glucose 116 mg/dL (65-115); Osmolality Calculated 314 mOsm/kg (285-295); Potassium 4.2 mmol/L (3.5-5.1); Sodium 143 mmol/L (136-145); Total Bilirubin 0.6 mg/dL (0.15-1.2); Total Protein 5.5 g/dL (6.6-8.7)
[2020-07-07] MEDS: ascorbic acid 500 mg Tablet PO (08:44)
[2020-07-07] MEDS: metoprolol tartrate 25 mg Tablet PO (08:44)
[2020-07-07] MEDS: famotidine 20 mg Tablet PO (08:45)
[2020-07-07] MEDS: dexamethasone 4 mg/mL INJ 6 MG IVP (08:45)
[2020-07-07] MEDS: apixaban 5 mg Tablet PO (08:45)
[2020-07-07] MEDS: zinc gluconate 50 mg Tablet PO (08:45)
--- NOTE | 2020-07-07 12:15 | P.DS_ITS ---
Discharge Providers Date of Admission: 07/01/20 16:17 Date of Discharge: July 07, 2020 Attending Provider at Admission: Radha Banks MD Attending Provider at Discharge: Patric Madden Primary Care Provider: Antolin Jernigan DO Diagnoses at Discharge Discharge Diagnosis (1) Acute respiratory failure with hypoxia: Status: Acute (2) Pneumonia due to COVID-19 virus: Status: Acute (3) COPD exacerbation: Status: Acute (4) GAB (acute kidney injury): Status: Acute (5) Atrial flutter: Status: Chronic Qualifiers: Atrial flutter type: unspecified Qualified Code(s): I48.92 - Unspecified atrial flutter (6) BPH NOS w ur obs/LUTS: Status: Chronic (7) Coronary artery disease: Status: Chronic Reason for Visit Reason for Visit: COVID+/SOB Hospital Course Hospital Course: Very pleasant 80-year-old gentleman with history of COPD, not normally on oxygen, chronic kidney disease, CAD, atrial flutter, BPH, other medical problems was admitted due to progressive shortness of breath, diagnosed with COVID-19 on 06/17 prior to admission, with the symptoms also associated with diarrhea and fatigue. He was started on oxygen support, received a course of remdesivir, Decadron. Empirically was treated with azithromycin as well. Initially required BiPAP support with FiO2 of 70%, but oxygenation gradually weaned down, and currently on home evaluation is needing 2 L of oxygen which have been ordered for him. Acute kidney injury on presentation with creatinine of 2.9 appears to have improved, creatinine down to 1.6 which is closer to his baseline. His D-dimer is down to 1.3. He continues on Eliquis. 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 He did well with physical therapy and is eager to continue therapy on his own, so home health has been ordered for him. He does get fatigued and desaturates with exertion, and as discussed with him due to this in addition to home health he will be asking his family to assist him and his with any more strenuous activities that may need to be done and for additional supervision. He understands to seek medical attention in case of return of any concerning symptoms. Of note blood culture from 07/01 came back with Staphylococcus xylosus, at this time suspected to be a contaminant. Repeat blood cultures without growth but still preliminary, please follow-up final results. Physical Exam Const: COMMON NORMALS: no acute distress, patient oriented x3 and alert ORIENTATION/CONSCIOUSNESS: Yes awake OTHER: Awake and alert, sitting up in chair. Pleasant. Conversant. In good spirits. Feels well. Feels ready to return home. HENMT: COMMON NORMALS: oropharynx normal Neck/C-Spine: COMMON NORMALS: no JVD Resp: COMMON NORMALS: normal respiratory effort and clear to auscultation bilaterally AUSCULTATION: clear to auscultation bilaterally Cardio: COMMON NORMALS: no JVD, regular rhythm, S1 normal heart sound present, S2 normal heart sound present and No murmurs present (Cardio) RHYTHM: regular rhythm HEART SOUNDS: S1 normal heart sound present and S2 normal heart sound present GI: COMMON NORMALS: Normal to inspection, nondistended, normoactive bowel sounds present, Soft to palpation and non-tender PALPATION: Yes Soft to palpation Extremity: COMMON NORMALS: no joint enlargement and no pedal edema Neuro: COMMON NORMALS: patient oriented x3 and moves all extremities SENSORIUM/ORIENTATION: Yes alert Skin: COMMON NORMALS: no rashes or lesions noted GENERAL SKIN EXAM: no rashes or lesions noted Discharge Data Data Completed and Pending: Completed Studies During Hospitalization Category Date Time Status XR chest 1V jovani ble [id number] Routine Exams 07/04/20 06:00 Completed XR chest 1V jovani ble [id number] Stat Exams 07/01/20 13:42 Completed Pending at discharge Category Date Time Status Bacterial Antigen Routine Lab 07/01/20 18:50 Results Blood Culture Sta t Lab 07/01/20 22:40 Results Blood Culture Sta t Lab 07/03/20 17:20 Results Complete Blood Co unt w/Auto AM LABS Lab 07/08/20 04:00 Ordered Complete Blood Co unt w/Auto AM LABS Lab 07/09/20 04:00 Ordered Comprehensive Met abolic Panel AM LA BS Lab 07/08/20 04:00 Ordered Comprehensive Met abolic Panel AM LA BS Lab 07/09/20 04:00 Ordered Legionella Antige n STAT Routine Lab 07/01/20 18:50 Results Sputum Culture an d Gram Stain Stat Lab 07/01/20 13:42 Uncollected Labs from last 24 hours 07/07/20 07/07/20 07/07/20 03:35 03:35 03:35 WBC 12.7 H RBC 4.05 L Hgb 11.6 L Hct 35.2 L MCV 86.9 MCH 28.6 MCHC 33.0 RDW 14.9 Plt Count 464 H MPV 8.8 Neut % (Auto) 80.1 Lymph % (Auto) 9.5 [place] % (Auto) 7.4 Eos % (Auto) 0.1 Baso % (Auto) 0.2 Neut # (Auto) 10.20 H Lymph # (Auto) 1.2 [place] # (Auto) 0.9 Eos # (Auto) 0.0 Baso # (Auto) 0.0 Nucleated RBC % (a uto) 0 Nucleated RBCs # 0.0 D-Dimer 1.30 H Sodium 143 Potassium 4.2 Chloride 115 H Carbon Dioxide 20 L Anion Gap 12.2 BUN 60 H Creatinine 1.6 H GFR Calculation Not Reportable Glucose 116 H POC Glucose Calculated Osmolal ity 314 H Calcium 8.2 L Total Bilirubin 0.6 AST 28 ALT 34 Alkaline Phosphata se 76 C-Reactive Protein 29.2 H Total Protein 5.5 L Albumin 2.4 L Globulin 3.1 07/06/20 16:22 WBC RBC Hgb Hct MCV MCH MCHC RDW Plt Count MPV Neut % (Auto) Lymph % (Auto) [place] % (Auto) Eos % (Auto) Baso % (Auto) Neut # (Auto) Lymph # (Auto) [place] # (Auto) Eos # (Auto) Baso # (Auto) Nucleated RBC % (a uto) Nucleated RBCs # D-Dimer Sodium Potassium Chloride Carbon Dioxide Anion Gap BUN Creatinine GFR Calculation Glucose POC Glucose 157 Calculated Osmolal ity Calcium Total Bilirubin AST ALT Alkaline Phosphata se C-Reactive Protein Total Protein Albumin Globulin Vitals: Last Vital Signs Temp 97.8 F 07/07/20 12:11 Pulse 80 07/07/20 12:11 Resp 31 H 07/07/20 12:11 BP 114/84 07/07/20 12:11 Pulse Ox 92 07/07/20 12:11 Discharge Plan Discharge Patient Disposition: Home Health Service Condition: Stable Prescriptions: New Advair Diskus 250-50 mcg/dose Blister With Device 1 ea inhalation BID.RESPIRATORY Qty: 60 RF: 0 benzonatate 100 mg Capsule 100 mg PO TID PRN (Reason: Cough) Qty: 30 RF: 0 levofloxacin 750 mg tablet 750 mg PO Q48H 3 Days Qty: 2 RF: 0 Continued atorvastatin 80 mg tablet 40 mg PO DAILY RF: 0 apixaban 5 mg tablet 5 mg PO BID RF: 0 cholecalciferol (vitamin D3) 50 mcg (2,000 unit) capsule 50 mcg PO DAILY RF: 0 turmeric 400 mg capsule 400 mg PO DAILY RF: 0 albuterol sulfate 2.5 mg /3 mL (0.083 %) Solution For Nebulization 2.5 mg INHALATION Q6H RF: 0 lisinopril-hydrochlorothiazide 20-12.5 mg Tablet 1 tab PO DAILY RF: 0 sildenafil 100 mg Tablet See Rx Instructions .ROUTE .COMPLEX RF: 0 tamsulosin 0.4 mg Capsule 0.4 mg PO BEDTIME RF: 0 ipratropium-albuterol 20-100 mcg/actuation Mist 1 puff INHALATION Q6H RF: 0 Changed metoprolol tartrate 100 MG 25 mg PO BID Qty: 0 RF: 0 Held olodaterol 2.5 mcg/actuation Mist 2 inh INHALATION DAILY RF: 0 Hold Instructions: Resume on 08/04/20. Discharge Orders: Discharge Order (Routine); Ordered 07/07/20 Ordered By: Patric Madden Other Ambulatory Orders: DME: Oxygen (Order) Location: None Selected Ordered By: Patric Madden Referrals: Home Care Equipment [Other] (The is the company that the [place] contracts with to provide your oxygen. If you have any questions or concerns about your oxygen, you may call them at the phone number provided.) [facility] [Outside] (This is your home health company. The order for home health has been sent to the [place] for approval and then the home health company will reach out to you to set up a time to begin services once they get approval from the [place]. If you have any questions or concerns, please call them at the phone number provided.) Antolin Jernigan, DO [Primary Care Provider] - 4-7 days (Please attempt to set up a telehealth visit within 48 hours after discharge if possible with primary care office. If not otherwise please follow-up within 4 to 7 days.) Discharge Diet: Cardiac Discharge Activity: Increase activity as tolerated, Limit activity as instructed, As per PT/OT instructions and Oxygen as instructed Activity Restrictions/Additional Instructions: Continue oxygen as instructed. If you are able to obtain a oxygen saturation monitor. Target saturation of 92%. Does not have to be higher to 96%. If persistently below 88%, or if you develop any kind of severe chest pain, severe shortness of breath, extreme tiredness, fainting, changing of lips or fingers to blue color, or any other concerning symptoms, call an ambulance. As discussed consider having support from your grandchildren while you are recovering, consider also arranging life alert button afterwards when by herself with your in case you need to call for help rapidly. Please attempt to arrange for a telehealth visit with your primary care doctor within 48 hours to follow-up on your progress. If unable to, otherwise please follow-up within 4-7 days. Given your illness it started back on June 17, within the next 1-2 days if you have no fever, and no other symptoms of illness, your cough is improving, and you are otherwise doing better, your isolation can probably be discontinued. Afterwards please still maintain social distancing, masking, hand hygiene as per general recommendations. 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
--- NOTE | 2020-07-08 09:40 | PC.SOCIAL ---
Attempted to call the patient and his , they both did not answer and they both do not have a voicemail box set up.
== END 2020-07-07 15:00 | disposition home health service (06) | DRG 177 ==
LOC: ER 15:29 → ICU 17:03
PROVIDERS: Family Medicine; Admitting Provider Family Medicine; Family Provider Emergency Medicine Emergency Medical Services; PCP Emergency Medicine Emergency Medical Services; Visit Provider Internal Medicine
DX: U07.1 COVID-19 (principal); J12.89 Other viral pneumonia; J96.01 Acute respiratory failure with hypoxia; N17.9 Acute kidney failure, unspecified; I48.92 Unspecified atrial flutter; N13.8 Other obstructive and reflux uropathy; J44.0 Chronic obstructive pulmonary disease with (acute) lower respiratory infection; N40.1 Benign prostatic hyperplasia with lower urinary tract symptoms; I25.10 Atherosclerotic heart disease of native coronary artery without angina pectoris; N18.31 Chronic kidney disease, stage 3a; Z87.891 Personal history of nicotine dependence
CPT/HCPCS: 12345; 36415; 36416; 36600; 71045; 80048; 80051; 80053; 82330; 82550; 82728; 82805; 82962; 83605; 83615; 83880; 84145; 85025; 85049; 85378; 85384; 86140; 86403; 87040; 87077; 87186; 87205; 87449; 87641; 87804; 93005; 94640; 94660; 96375; 97110; 97162; 97530; 99284; J0456; J1100; J3490; J7030; J7040; J7050

== ENCOUNTER 2020-10-08 12:35 | Outpatient (CLI) | payer OTHER, SELFPAY ==
--- NOTE | 2020-10-08 12:47 | US_ITS ---
WS: [id number] RENAL ULTRASOUND HISTORY: CHRONIC KIDNEY DZ-STAGE 3 COMPARISON: 01/01/2019 TECHNIQUE: 2-D and color Doppler imaging of the kidney submitted. Right kidney: 9.2 cm x 2.7 cm x 3.7 cm. RIGHT kidney is poorly visualized. There is increased echogenicity. No hydronephrosis. Left kidney: 9.7 cm x 4.1 cm x 4.7 cm. Normal size kidney. Cortical cyst inferior pole measures 1.3 x 0.8 x 0.9 cm. No solid mass or obstruc tion. Aorta: Normal. Urinary Bladder: Normal distention. Marked enlargement of the prostate gland. Prostate gland is of decreased echogenicity and lobulated. US/US renal BI* [id number] IMPRESSION: 1. Difficult visualization of the RIGHT kidney. 2. No obstruction. 3. Simple cyst LEFT kidney. 4. Enlarged heterogeneous prostate gland.
== END 2020-10-08 12:36 | disposition home or self-care (01) ==
LOC: RAD 12:36
PROVIDERS: PCP Emergency Medicine Emergency Medical Services; Visit Provider Internal Medicine Nephrology
DX: N18.32 Chronic kidney disease, stage 3b (principal); N28.1 Cyst of kidney, acquired; N40.0 Benign prostatic hyperplasia without lower urinary tract symptoms
CPT/HCPCS: 76770

== ENCOUNTER → 2022-03-22 13:37 | Outpatient (BNVA) | payer OTHER, SELFPAY | PROVIDERS: PCP Emergency Medicine Emergency Medical Services; Visit Provider Internal Medicine Cardiovascular Disease | DX: I25.10 Atherosclerotic heart disease of native coronary artery without angina pectoris (principal); I48.92 Unspecified atrial flutter; Z79.01 Long term (current) use of anticoagulants; E78.5 Hyperlipidemia, unspecified; I12.9 Hypertensive chronic kidney disease with stage 1 through stage 4 chronic kidney disease, or unspecified chronic kidney disease; N18.31 Chronic kidney disease, stage 3a; Z87.891 Personal history of nicotine dependence; Z99.2 Dependence on renal dialysis | CPT/HCPCS: 99214 ==

== ENCOUNTER → 2022-09-27 14:08 | Outpatient (BNVA) | payer OTHER, SELFPAY | PROVIDERS: PCP Emergency Medicine Emergency Medical Services; Visit Provider Nurse Practitioner Family | DX: I25.10 Atherosclerotic heart disease of native coronary artery without angina pectoris (principal); I48.92 Unspecified atrial flutter; Z87.891 Personal history of nicotine dependence; I12.9 Hypertensive chronic kidney disease with stage 1 through stage 4 chronic kidney disease, or unspecified chronic kidney disease; N18.31 Chronic kidney disease, stage 3a | CPT/HCPCS: 99214 ==

== ENCOUNTER 2022-12-06 14:35 | Emergency (ER) | payer OTHER, MEDICAID, SELFPAY ==
[2022-12-06 14:39] VITALS: BP 101/56; PULSE 123; RESP 16; TEMP 37.7; O2SAT 95; BMI 27.1
--- NOTE | 2022-12-06 14:47 | XRR_ITS ---
PROCEDURE INFORMATION: Exam: XR Chest Exam date and time: 12/06/2022 3:09 PM Age: 82 years old Clinical indication: Cough and dyspnea; Patient HX: Home covid test was positive; Additional info: Dyspnea/cough TECHNIQUE: Imaging protocol: Radiologic exam of the chest. Views: 1 view. COMPARISON: CR XR chest 1V portable [id number] 07/04/2020 6:56 AM FINDINGS: Lungs: There are some scattered peripheral fine interstitial and ground-glass opacities mid to lower lung zones significantly improved from July 04, 2020 and somewhat similar to earlier exam performed 2017. Findings may represent sequelae of chronic unresolved idiopathic interstitial lung disease, eosinophilic lung disease or recurrent viral pneumonitis. Pleural spaces: Unremarkable. No pleural effusion. No pneumothorax. Heart/Mediastinum: Cardiac silhouette is borderline enlarged, stable. Bones/joints: Postsurgical changes with hardware cervical spine. No acute bony abnormalities. XR/XR chest 1V portable [id number] IMPRESSION: Mild interstitial/ground-glass opacities present peripherally mid-lower lung zones, nonspecific as discussed above.
[2022-12-06 15:02] VITALS: BP 101/56; PULSE 92; O2SAT 91
--- NOTE | 2022-12-06 15:18 | W.ED.SOB ---
HPI - SOB/Dyspnea General: Chief Complaint: Shortness of Breath/Dyspnea Stated Complaint: COVID +/ SOB Time Seen by Provider: 12/06/22 14:38 Source: patient Mode of arrival: EMS History of Present Illness: HPI Narrative: 82-year-old male presents emergency room with complaints of cough and shortness of breath. Symptoms began 5 days ago he took an at home COVID test which was positive. He has had a nonproductive cough significant loss of energy no vomiting no diarrhea low-grade fever fever. No diarrhea no anosmia. Has had myalgias headache as well MD elicited complaint: shortness of breath and cough Onset (ago): hour(s) Timing: constant Severity: mild Exacerbating factors: nothing Relieving factors: nothing Associated symptoms: Deny abdominal pain, chest congestion, chest pain, cough, diaphoresis, dizziness, extremity pain, fever(s), hemoptysis, lightheadedness, myalgias, nausea, orthopnea, palpitations, paresthesias, polydipsia, polyuria, rash, sense of impending doom, syncope or vomiting Treatment prior to arrival: none Review of Systems Const: Denies: fever(s), chills, fatigue, malaise or diaphoresis ENMT: Denies: throat pain, ear or mastoid pain, nasal discharge or nasal congestion Card: Denies: chest pain, palpitations, lightheadedness, syncope or orthopnea Resp: Reports: dyspnea, non-productive cough and wheezing; Denies: productive cough, hemoptysis or chest congestion GI: Denies: abdominal pain, nausea or vomiting : Denies: flank pain, dysuria, urinary frequency or urinary urgency Musc: Reports: back pain; Denies: extremity pain Skin/Breast: Denies: rash or pruritus Neuro: Denies: dizziness Endo: Denies: polyuria or polydipsia PFSH ED PFSH: Medical History Acute respiratory failure with hypoxia Asymptomatic microscopic hematuria Atrial flutter BPH NOS w ur obs/LUTS CKD stage G3a/A1, GFR 45-59 and albumin creatinine ratio <30 mg/g COPD (chronic obstructive pulmonary disease) COPD exacerbation Coronary artery disease Surgical History H/O wisdom tooth extraction History of right inguinal hernia repair Family History Father CAD (coronary artery disease) of OR at 59 Brother Lung disease Other Asthma Denies family history of Diabetes Clotting disorder Dementia Chronic kidney disease (CKD) Suicide Anesthesia complication Bleeding disorder Cancer Stroke Social History Smoking and tobacco status: former smoker Alcohol intake: never Household members: spouse Marital status: Current occupational status: retired Physical Exam Const: GENERAL APPEARANCE: cooperative and comfortable ORIENTATION/CONSCIOUSNESS: Yes awake, Yes oriented to person, Yes oriented to place and Yes oriented to time HENMT: COMMON NORMALS: normocephalic, atraumatic and hearing grossly normal bilaterally HEAD & SCALP: normocephalic and atraumatic Resp: COMMON NORMALS: normal respiratory effort, No retractions, No use of accessory muscles and clear to auscultation bilaterally AUSCULTATION: clear to auscultation bilaterally Cardio: COMMON NORMALS: regular rate, regular rhythm and No murmurs present (Cardio) RATE: regular rate RHYTHM: regular rhythm GI: COMMON NORMALS: Soft to palpation and No hepatosplenomegaly present AUSCULTATION: Yes normoactive bowel sounds PALPATION: Yes Soft to palpation, No Tenderness to palpation present (GI), No Guarding due to palpation present (GI) and Yes No hepatosplenomegaly present Extremity: COMMON NORMALS: normal to inspection, capillary refill normal, no clubbing, cyanosis or edema, no calf tenderness and no pedal edema Neuro: SENSORIUM/ORIENTATION: Yes oriented to person, Yes oriented to place and Yes oriented to time Skin: COMMON NORMALS: no rashes or lesions noted GENERAL SKIN EXAM: no rashes or lesions noted Course Vital Signs: Vital signs: Vital Signs Temperature 99.9 F H 12/06/22 14:39 Pulse Rate 115 H 12/06/22 17:21 Respiratory Rate 16 12/06/22 14:39 Blood Pressure 90/62 12/06/22 17:21 Pulse Oximetry 93 12/06/22 17:21 Oxygen Delivery Me thod 12/06/22 16:49 MDM - SOB/Dyspnea Medical Decision Making Stable with normal oxygen sats on room air exercise O2 evaluation patient does not qualify for oxygen. Patient not a candidate for Paxlovid no need for steroids. We will discharge patient home supportive cares return if is worsening breathing problems. X-ray does not show any pneumonia is typical pattern for COVID. No suspicion at this time with PE. Additionally patient is already on apixaban. Medical Records I reviewed the patient's medical records. Lab Data I reviewed the patient's lab results. 12/06/22 15:05 12/06/22 15:05 Labs/Radiology: Radiology Impressions Chest X-Ray 12/06/22 14:47 IMPRESSION: Mild interstitial/ground-glass opacities present peripherally mid-lower lung zones, nonspecific as discussed above. Laboratory Results WBC 10.6 10^3/uL (4.0-10.0) H 12/06/22 15:05 RBC 4.74 10^6/uL (4.1-5.3) 12/06/22 15:05 Hgb 14.0 g/dL (11.7-16.6) 12/06/22 15:05 Hct 41.7 % (42.0-52.0) L 12/06/22 15:05 MCV 88.0 fl (80-94) 12/06/22 15:05 MCH 29.5 pg (28.0-34.0) 12/06/22 15:05 MCHC 33.6 g/dL (30.0-36.0) 12/06/22 15:05 RDW 13.3 % (12.1-15.1) 12/06/22 15:05 Plt Count 239 10^3/cmm (130-400) 12/06/22 15:05 MPV 9.2 fL (7.4-10.4) 12/06/22 15:05 Neut % (Auto) 83.2 % 12/06/22 15:05 Lymph % (Auto) 6.5 % 12/06/22 15:05 [place] % (Auto) 9.1 % 12/06/22 15:05 Eos % (Auto) 0.1 % 12/06/22 15:05 Baso % (Auto) 0.4 % 12/06/22 15:05 Neut # (Auto) 8.83 10^3/uL (1.8-7.7) H 12/06/22 15:05 Lymph # (Auto) 0.7 10^3/uL (0.8-4.8) L 12/06/22 15:05 [place] # (Auto) 1.0 10^3/uL (0.2-0.9) H 12/06/22 15:05 Eos # (Auto) 0.0 10^3/uL (0.0-0.8) 12/06/22 15:05 Baso # (Auto) 0.0 10^3/uL (0.0-0.1) 12/06/22 15:05 Nucleated RBC % (auto) 0 % 12/06/22 15:05 Nucleated RBCs # 0.0 /100WBC 12/06/22 15:05 Sodium 135 mmol/L (136-145) L 12/06/22 15:05 Potassium 4.6 mmol/L (3.5-5.1) 12/06/22 15:05 Chloride 99 mmol/L (98-107) 12/06/22 15:05 Carbon Dioxide 19 mmol/L (22-29) L 12/06/22 15:05 Anion Gap 21.6 (5-19) H 12/06/22 15:05 BUN 66 mg/dL (8-23) H 12/06/22 15:05 Creatinine 3.4 mg/dL (0.7-1.2) H 12/06/22 15:05 GFR Calculation Not Reportable 12/06/22 15:05 Glucose 112 mg/dL (65-115) 12/06/22 15:05 Calculated Osmolality 300 mOsm/kg (285-295) H 12/06/22 15:05 Calcium 8.4 mg/dL (8.5-10.5) L 12/06/22 15:05 Total Bilirubin 0.7 mg/dL (0.15-1.2) 12/06/22 15:05 AST 28 U/L (0-40) 12/06/22 15:05 ALT 14 U/L (0-41) 12/06/22 15:05 Alkaline Phosphatase 88 U/L (40-130) 12/06/22 15:05 Total Protein 6.7 g/dL (6.6-8.7) 12/06/22 15:05 Albumin 3.5 g/dL (3.5-5.2) 12/06/22 15:05 Globulin 3.2 g/dL (1.3-4.6) 12/06/22 15:05 Coronavirus 229E (PCR) Not detected (NOT DETECT) 12/06/22 14:54 SARS-CoV-2 (PCR) Detected (NOT DETECT) A 12/06/22 14:54 Discharge Plan Discharge Patient Disposition: Home Clinical Impression: COVID-19 Condition: Stable Prescriptions: No Action atorvastatin 80 mg tablet 40 mg PO DAILY Rx Instructions: TAKE 1/2 TAB EVERY EVENING. PT UNABLE TO CONFIRM MEDICATIONS. GOING BY MEDICATION HISTORY AND MEDICATION LIST FROM [place]. apixaban 5 mg tablet 5 mg PO BID Rx Instructions: PT UNABLE TO CONFIRM MEDICATIONS. GOING BY MEDICATION HISTORY AND MEDICATION LIST FROM [place]. lisinopril-hydrochlorothiazide 20-12.5 mg Tablet 1 tab PO DAILY Rx Instructions: PT UNABLE TO CONFIRM MEDICATIONS. GOING BY MEDICATION HISTORY AND MEDICATION LIST FROM [place]. tamsulosin 0.4 mg Capsule 0.4 mg PO BEDTIME Rx Instructions: PT UNABLE TO CONFIRM MEDICATIONS. GOING BY MEDICATION HISTORY AND MEDICATION LIST FROM [place]. metoprolol tartrate 100 MG 25 mg PO BID Qty: 0 0RF Rx Instructions: PT UNABLE TO CONFIRM MEDICATIONS. GOING BY MEDICATION HISTORY AND MEDICATION LIST FROM [place]. Discharge Orders: Discharge ED (Routine); Ordered 12/06/22 Ordered By: Dannie Gayle Referrals: Antolin Jernigan, [Primary Care Provider] - Discharge Diet: Usual diet Discharge Activity: Increase activity as tolerated Patient Instructions: COVID-19 (Coronavirus Disease 2019) (ED), Opioid Safety, Pain Management Activity Restrictions/Additional Instructions: You are seen today for COVID-19 infection. Your chest x-ray shows changes consistent with COVID-19 and your oxygen sat is normal. You are not a candidate for Paxlovid the treatment for COVID-19 at this point is supportive cares. Recommend you self quarantine until released by health department. 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
[2022-12-06 15:23] LABS: Basophils % 0.4 %; Eosinophils % 0.1 %; Hematocrit 41.7 % (42.0-52.0); Lymphocytes # 0.7 10^3/uL (0.8-4.8); Lymphocytes % 6.5 %; Mean Corpuscular HGB Conc 33.6 g/dL (30.0-36.0); Mean Corpuscular Hemoglobin 29.5 pg (28.0-34.0); Mean Platelet Volume 9.2 fL (7.4-10.4); Monocytes % 9.1 %; Neutrophils # 8.83 10^3/uL (1.8-7.7); Neutrophils % 83.2 %; Nucleated Red Blood Cells % 0 %; Platelet Count 239 10^3/cmm (130-400); Red Blood Count 4.74 10^6/uL (4.1-5.3); Red Cell Distribution Width 13.3 % (12.1-15.1); White Blood Count 10.6 10^3/uL (4.0-10.0)
[2022-12-06 15:39] LABS: Alanine Aminotransferase 14 U/L (0-41); Albumin Level 3.5 g/dL (3.5-5.2); Alkaline Phosphatase 88 U/L (40-130); Anion Gap 21.6 (5-19); Aspartate Amino Transferase 28 U/L (0-40); Blood Urea Nitrogen 66 mg/dL (8-23); Calcium 8.4 mg/dL (8.5-10.5); Carbon Dioxide 19 mmol/L (22-29); Chloride 99 mmol/L (98-107); Globulin 3.2 g/dL (1.3-4.6); Glucose 112 mg/dL (65-115); Osmolality Calculated 300 mOsm/kg (285-295); Potassium 4.6 mmol/L (3.5-5.1); Sodium 135 mmol/L (136-145); Total Bilirubin 0.7 mg/dL (0.15-1.2); Total Protein 6.7 g/dL (6.6-8.7)
[2022-12-06 16:49] VITALS: BP 97/87; PULSE 113; O2SAT 92
[2022-12-06 16:59] VITALS: O2SAT 94; O2SAT 96
[2022-12-06 17:21] VITALS: BP 90/62; PULSE 115; O2SAT 93
[2022-12-06 17:44] LABS: Adenovirus Not Detected (NOT DETECT); Chlamydia Pneumoniae Not Detected (NOT DETECT); Coronavirus 229E,HKU1,NL63,OC4 Not Detected (NOT DETECT); Human Metapneumovirus Not Detected (NOT DETECT); Human Rhinovirus/Enterovirus Not Detected (NOT DETECT); Influenza A Not Detected (NOT DETECT); Influenza A H1 Not Detected (NOT DETECT); Influenza A H1-2009 Not Detected (NOT DETECT); Influenza A H3 Not Detected (NOT DETECT); Influenza B Not Detected (NOT DETECT); Mycoplasma Pneumoniae Not Detected (NOT DETECT); Parainfluenza Virus Type 1 Not Detected (NOT DETECT); Parainfluenza Virus Type 2 Not Detected (NOT DETECT); Parainfluenza Virus Type 3 Not Detected (NOT DETECT); Parainfluenza Virus Type 4 Not Detected (NOT DETECT); Respiratory Syncytial Virus A Not Detected (NOT DETECT); Respiratory Syncytial Virus B Not Detected (NOT DETECT); SARS-COV-2 Detected (NOT DETECT)
== END 2022-12-06 17:23 | disposition home or self-care (01) ==
PROVIDERS: Emergency Provider Family Medicine; PCP Emergency Medicine Emergency Medical Services
DX: U07.1 COVID-19 (principal); Z87.891 Personal history of nicotine dependence; N18.31 Chronic kidney disease, stage 3a; J44.9 Chronic obstructive pulmonary disease, unspecified; I25.10 Atherosclerotic heart disease of native coronary artery without angina pectoris
CPT/HCPCS: 36415; 71045; 80053; 85025; 87635; 99284

== ENCOUNTER → 2023-04-04 13:29 | Outpatient (BNVA) | payer OTHER, SELFPAY | PROVIDERS: PCP Emergency Medicine Emergency Medical Services; Visit Provider Internal Medicine Cardiovascular Disease | DX: I48.92 Unspecified atrial flutter (principal); E78.5 Hyperlipidemia, unspecified; I25.10 Atherosclerotic heart disease of native coronary artery without angina pectoris; Z87.891 Personal history of nicotine dependence; I12.9 Hypertensive chronic kidney disease with stage 1 through stage 4 chronic kidney disease, or unspecified chronic kidney disease; N18.31 Chronic kidney disease, stage 3a; Z79.01 Long term (current) use of anticoagulants | CPT/HCPCS: 99214 ==

== ENCOUNTER → 2023-04-18 10:51 | Outpatient (BNVA) | payer OTHER, SELFPAY | PROVIDERS: PCP Emergency Medicine Emergency Medical Services; Visit Provider Nurse Practitioner Family | DX: D48.5 Neoplasm of uncertain behavior of skin (principal); L57.8 Other skin changes due to chronic exposure to nonionizing radiation; L81.4 Other melanin hyperpigmentation; L85.3 Xerosis cutis; D22.5 Melanocytic nevi of trunk; D17.22 Benign lipomatous neoplasm of skin and subcutaneous tissue of left arm; D17.0 Benign lipomatous neoplasm of skin and subcutaneous tissue of head, face and neck; L72.0 Epidermal cyst; L57.0 Actinic keratosis | CPT/HCPCS: 11102; 17000; 17003; 99213 ==

== ENCOUNTER 2023-08-24 13:55 | Outpatient (CLI) | payer OTHER, SELFPAY ==
--- NOTE | 2023-08-24 14:04 | MR_ITS ---
WS: [id number] MRI ABDOMEN WITH AND WITHOUT CONTRAST. COMPARISON: CT abdomen 01/19/2023, only noncontrast evaluation of the abdomen is submitted. No post co ntrast imaging submitted. Multiplanar, multisequence imaging is performed with and without contrast. MultiHance 20 mL IV. History: Pancreatic mass distal pancreas follow-up. There is a cluster of nonenhancing cystic masses associated with the distal pancreatic tail. The larg est cyst measures 1.5 x 1.2 cm. Smaller cysts measure maximum 1.2 and 0.6 cm. These do not enhance. 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 N o pancreatic duct dilatation. The remaining pancreas is normal. No solid mass or enhancing mass. The liver is normal size. The visualized gallbladder is normal. No adrenal mass. Kidneys are mildly a trophic. No renal obstruction. No solid mass. Normal aorta. IMPRESSION: 1. Lobulated cystic masses involving the pancreatic tail. The largest cyst measures 1.5 x 1.2 cm. No soft tissue enhancement. 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 Consider 6-month MRI pancreas wit h contrast follow-up. 2. Mild bilateral cortical renal atrophy.
[2023-08-24] MEDS: gadobenate dimeglumine 20 mL vial IV (16:57)
== END 2023-08-24 13:56 | disposition home or self-care (01) ==
LOC: RAD 13:55
PROVIDERS: PCP Emergency Medicine Emergency Medical Services; Visit Provider Emergency Medicine Emergency Medical Services
DX: K86.2 Cyst of pancreas (principal)
CPT/HCPCS: 74183; A9577

== ENCOUNTER 2023-08-30 08:47 | Observation (INO) | payer OTHER, SELFPAY ==
[2023-08-30] VITALS (23 sets, daily range): BP systolic 84–115; BP diastolic 39–68; PULSE 72–156; RESP 18–42; TEMP 36.5–37.1; O2SAT 90–97; BMI 29.8; BMI 27.0
--- NOTE | 2023-08-30 08:50 | XRR_ITS ---
PROCEDURE INFORMATION: Exam: XR Chest Exam date and time: 08/30/2023 9:03 AM Age: 83 years old Clinical indication: Cough and dyspnea; Additional info: Dyspnea/cough TECHNIQUE: Imaging protocol: Radiologic exam of the chest. Views: 1 view. COMPARISON: 1. CR XR chest 1V portable [id number] 12/06/2022 3:09 PM 2. CR XR chest 1V portable [id number] 07/04/2020 6:56 AM 3. CR XR chest 1V portable [id number] 07/01/2020 2:[address] chest abdpel w/*[id number] 01/19/2023 1:51 PM FINDINGS: Lungs: There is bilateral subpleural and lower lung predominant fine reticular opacity corresponding to the findings on chest CT 01/19/2023. There is asymmetric confluent subpleural density along the lateral left thorax. Pleural spaces: There is no pleural effusion or pneumothorax. Heart/Mediastinum: Cardiomediastinal contours are unremarkable. Bones/joints: Lower cervical fusion is partially imaged. There is mild degenerative disease at both shoulders. XR/XR chest 1V portable [id number] IMPRESSION: 1. Bilateral subpleural lower lung predominant reticular opacity corresponds to the findings on chest CT 01/19/2023 and suggests chronic interstitial lung disease. 2. Asymmetric opacity in the lateral left mid lung has been variably visible on prior chest radiographs dating back to 07/01/2020. No definite correlate is visible on the prior chest CT. Possible pulmonary consolidation, atelectasis, or loculated pleural fluid.
--- NOTE | 2023-08-30 08:51 | ECG_ITS ---
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 Measurements Intervals [place] Rate: 150 P: 0 CO: 0 QRS: -63 QRSD: 116 T: 109 QT: 293 QTc: 463 Interpretive Statements ATRIAL FIBRILLATION WITH RAPID VENTRICULAR RESPONSE INFERIOR MYOCARDIAL INFARCTION , OF INDETERMINATE AGE [40+ ms Q WAVE AND/OR ST/T ABNORMALITY IN II/aVF] Compared to ECG 07/01/2020 13:52:37 Sinus tachycardia no longer present Myocardial infarct finding still present Electronically Signed On 08-30-2023 11:11:06 BIG DATA PLATFORM ARCHITECT by Miles Johnson M.D. [email or web address]
--- NOTE | 2023-08-30 08:51 | ED_ITS ---
HPI - General Adult 2 General: Chief complaint: Chest Pain Stated complaint: Sob, Chest pain Time Seen by Provider: 08/30/23 08:50 Source: patient Mode of arrival: EMS History of Present Illness: 83-year-old male with a history of a flu tter presents to the emergency room with a complaint of shortness of breath palpitations and chest discomfort has had intermittently for the last 3 days. He is not having any chest pain at this time he states it feels difficult to breathe. He denies cough or fever. Breathing is worse when he tries to exert himself he is on metoprolol and apixaban for his history of atrial fibrillation did not take his medications this morning. Onset (ago): day(s) (3) Relieving factors: none Exacerbating factors: none Associated symptoms: Reports chest pain, dyspnea and palpitations; Deny confusion, cough, diaphoresis, decreased appetite, fevers/chills, headache(s), malaise, nausea, rash, seizures, short of breath, syncope, vomiting or weakness Review of Systems 2 Const: Denies: fever(s), chills, malaise or diaphoresis Card: Reports: chest pain, palpitations and irregular heart rhythm; Denies: syncope Resp: Reports: dyspnea; Denies: productive cough or non-productive cough GI: Denies: abdominal pain, nausea or vomiting : Denies: dysuria, urinary frequency or urinary urgency Musc: Denies: neck pain or back pain Skin/Breast: Denies: rash Neuro: Denies: headache(s) or confusion PFSH ED 2 PFSH: Medical History CKD stage G3a/A1, GFR 45-59 and albumin creatinine ratio <30 mg/g COPD exacerbation Acute respiratory failure with hypoxia COPD (chronic obstructive pulmonary disease) Atrial flutter Coronary artery disease Asymptomatic microscopic hematuria BPH NOS w ur obs/LUTS Surgical History History of right inguinal hernia repair H/O wisdom tooth extraction Family History Father CAD (coronary artery disease) of [place] at 59 Brother Lung disease Other Asthma Denies family history of Diabetes Clotting disorder Dementia Chronic kidney disease (CKD) Suicide Anesthesia complication Bleeding disorder Cancer Stroke Social History Smoking and tobacco/nicotine status: former use of tobacco/nicotine Alcohol intake: never Substance/Drug Use: never Household members: spouse Marital status: Current occupational status: retired Physical Exam 2 Const: GENERAL APPEARANCE: cooperative and comfortable O RIENTATION/CONSCIOUSNESS: Yes awake, Yes oriented to person, Yes oriented to place and Yes oriented to time HENMT: COMMON NORMALS: normocephalic, atraumatic and hearing grossly normal bilaterally HEAD & SCALP: normocephalic and atraumatic Resp: COMMON NORMALS: normal respiratory effort, No retractions, No use of accessory muscles and clear to auscultation bilaterally AUSCULTATION: clear to auscultation bilaterally Cardio: COMMON NORMALS: No murmurs present (Cardio) RATE: tachycardic R HYTHM: abnormal rhythm irregularly irregular GI: COMMON NORMALS: Soft to palpation and No hepatosplenomegaly present A USCULTATION: Yes normoactive bowel sounds PALPATION: Yes Soft to palpation, No Tenderness to palpation present (GI), No Guarding due to palpation present (GI) and Yes No hepatosplenomegaly present Extremity: COMMON NORMALS: normal to inspection, capillary refill normal, no clubbing, cyanosis or edema, no calf tenderness and no pedal edema Neuro: SENSORIUM/ORIENTATION: Yes oriented to person, Yes oriented to place and Yes oriented to time Skin: COMMON NORMALS: no rashes or lesions noted GENERAL SKIN EXAM: no rashes or lesions noted Course 2 Vital Signs: Vital signs: Vital Signs Temperature 98.0 F 08/30/23 08:48 Pulse Rate 96 08/30/23 10:19 Respiratory Rate 21 H 08/30/23 10:19 Blood Pressure 107/54 08/30/23 10:19 Pulse Oximetry 93 08/30/23 10:19 Oxygen Delivery Me thod Nasal Cannula 08/30/23 10:19 Oxygen Flow Rate 2 08/30/23 10:19 MDM - General Adult Medical Decision Making A-fib with RVR mildly hypotensive improved with some fluids Cardizem is currently 7.5. Him hesitant to give him his metoprolol with soft blood pressure he is probably had an elevated rate for the least the last 3 days based on his historical complaint. Discussed with hospitalist will place on nobs to reevaluate blood pressure and rate control Medical Records I reviewed the patient's medical records. Lab Data I reviewed the patient's lab results. 08/30/23 08:37 08/30/23 08:37 Radiology Impressions Chest X-Ray 08/30/23 08:50 IMPRESSION: 1. Bilateral subpleural lower lung predominant reticular opacity corresponds to the findings on chest CT 01/19/2023 and suggests chronic interstitial lung disease. 2. Asymmetric opacity in the lateral left mid lung has been variably visible on prior chest radiographs dating back to 07/01/2020. No definite correlate is visible on the prior chest CT. Possible pulmonary consolidation, atelectasis, or loculated pleural fluid. Laboratory Results WBC 5.14 10^3/uL (3.29-11.43) 08/30/23 08:37 RBC 5.29 10^6/uL (3.85-5.65) 08/30/23 08:37 Hgb 15.70 g/dL (11.27-16.99) 08/30/23 08:37 Hct 46.8 % (37-53) 08/30/23 08:37 MCV 88.5 fl (82-101) 08/30/23 08:37 MCH 29.7 pg (27-33) 08/30/23 08:37 MCHC 33.5 g/dL (30-55) 08/30/23 08:37 RDW 14.4 % (12.1-15.1) 08/30/23 08:37 Plt Count 205 10^3/cmm (157-399) 08/30/23 08:37 MPV 9.2 fL (7.4-10.4) 08/30/23 08:37 Neut % (Auto) 55.4 % 08/30/23 08:37 Lymph % (Auto) 26.7 % 08/30/23 08:37 Island % (Auto) 16.3 % 08/30/23 08:37 Eos % (Auto) 0.6 % 08/30/23 08:37 Baso % (Auto) 0.6 % 08/30/23 08:37 Neut # (Auto) 2.85 10^3/uL (1.8-7.7) 08/30/23 08:37 Lymph # (Auto) 1.4 10^3/uL (0.8-4.8) 08/30/23 08:37 Island # (Auto) 0.8 10^3/uL (0.2-0.9) 08/30/23 08:37 Eos # (Auto) 0.0 10^3/uL (0.0-0.8) 08/30/23 08:37 Baso # (Auto) 0.0 10^3/uL (0.0-0.1) 08/30/23 08:37 Nucleated RBC % (auto) 0 % 08/30/23 08:37 Nucleated RBCs # 0.0 /100WBC 08/30/23 08:37 Sodium 138 mmol/L (136-145) 08/30/23 08:37 Potassium 3.9 mmol/L (3.5-5.1) 08/30/23 08:37 Chloride 98 mmol/L (98-107) 08/30/23 08:37 Carbon Dioxide 22 mmol/L (22-29) 08/30/23 08:37 Anion Gap 21.9 (5-19) H 08/30/23 08:37 BUN 41 mg/dL (8-23) H 08/30/23 08:37 Creatinine 2.6 mg/dL (0.7-1.2) H 08/30/23 08:37 GFR Calculation Not Reportable 08/30/23 08:37 Glucose 100 mg/dL (65-115) 08/30/23 08:37 Calculated Osmolality 296 mOsm/kg (285-295) H 08/30/23 08:37 Calcium 9.1 mg/dL (8.5-10.5) 08/30/23 08:37 Total Bilirubin 0.5 mg/dL (0.15-1.2) 08/30/23 08:37 AST 36 U/L (0-40) 08/30/23 08:37 ALT 14 U/L (0-41) 08/30/23 08:37 Alkaline Phosphatase 89 U/L (40-130) 08/30/23 08:37 Troponin T Baseline 51 ng/L (0-15) H 08/30/23 08:37 Troponin T 120 Minute 46.77 ng/L (0-15) H 08/30/23 10:25 Delta Troponin T -4.23 ABS# (0-10) L 08/30/23 10:25 Total Protein 6.7 g/dL (6.6-8.7) 08/30/23 08:37 Albumin 4.1 g/dL (3.5-5.2) 08/30/23 08:37 Globulin 2.6 g/dL (1.3-4.6) 08/30/23 08:37 All radiology interpretation(s) finalized by discharge Discharge Plan Discharge Condition: Stable Prescriptions: No Action atorvastatin 80 mg tablet 40 mg PO DAILY Rx Instructions: TAKE 1/2 TAB EVERY EVENING. PT UNABLE TO CONFIRM MEDICATIONS. GOING BY MEDICATION HISTORY AND MEDICATION LIST FROM NE. apixaban 5 mg tablet 5 mg PO BID Rx Instructions: PT UNABLE TO CONFIRM MEDICATIONS. GOING BY MEDICATION HISTORY AND MEDICATION LIST FROM NE. metoprolol tartrate 100 MG 50 mg PO BID Rx Instructions: PT UNABLE TO CONFIRM MEDICATIONS. GOING BY MEDICATION HISTORY AND MEDICATION LIST FROM NE. lisinopril-hydrochlorothiazide 20-12.5 mg Tablet 1 tab PO DAILY Rx Instructions: PT UNABLE TO CONFIRM MEDICATIONS. GOING BY MEDICATION HISTORY AND MEDICATION LIST FROM NE. tamsulosin 0.4 mg capsule 0.8 mg PO BEDTIME Rx Instructions: PT UNABLE TO CONFIRM MEDICATIONS. GOING BY MEDICATION HISTORY AND MEDICATION LIST FROM NE. Referrals: Antolin Jernigan DO [Primary Care Provider] - Coding Level of Care Code ED Energy Assistant for Hao Sargent
[2023-08-30 09:03] LABS: Basophils % 0.6 %; Eosinophils % 0.6 %; Hematocrit 46.8 % (37-53); Lymphocytes # 1.4 10^3/uL (0.8-4.8); Lymphocytes % 26.7 %; Mean Corpuscular HGB Conc 33.5 g/dL (30-55); Mean Corpuscular Hemoglobin 29.7 pg (27-33); Mean Corpuscular Volume 88.5 fl (82-101); Mean Platelet Volume 9.2 fL (7.4-10.4); Monocytes # 0.8 10^3/uL (0.2-0.9); Monocytes % 16.3 %; Neutrophils # 2.85 10^3/uL (1.8-7.7); Neutrophils % 55.4 %; Nucleated Red Blood Cells % 0 %; Platelet Count 205 10^3/cmm (157-399); Red Blood Count 5.29 10^6/uL (3.85-5.65); Red Cell Distribution Width 14.4 % (12.1-15.1); White Blood Count 5.14 10^3/uL (3.29-11.43)
[2023-08-30 09:17] LABS: Troponin(5th) Baseline 51 ng/L (0-15)
[2023-08-30] MEDS: dilTIAZem 5 mg/mL SDV 5 mL 20 MG IVP (09:17)
[2023-08-30 09:20] LABS: Alanine Aminotransferase 14 U/L (0-41); Albumin Level 4.1 g/dL (3.5-5.2); Alkaline Phosphatase 89 U/L (40-130); Anion Gap 21.9 (5-19); Aspartate Amino Transferase 36 U/L (0-40); Blood Urea Nitrogen 41 mg/dL (8-23); Calcium 9.1 mg/dL (8.5-10.5); Carbon Dioxide 22 mmol/L (22-29); Chloride 98 mmol/L (98-107); Globulin 2.6 g/dL (1.3-4.6); Glucose 100 mg/dL (65-115); Osmolality Calculated 296 mOsm/kg (285-295); Potassium 3.9 mmol/L (3.5-5.1); Sodium 138 mmol/L (136-145); Total Bilirubin 0.5 mg/dL (0.15-1.2); Total Protein 6.7 g/dL (6.6-8.7)
--- NOTE | 2023-08-30 09:22 | PC.PHAR ---
[facility]ED [facility] 08/30/23 9:20AM
[2023-08-30] MEDS: dilTIAZem 100 MG in sodium chloride 0.9% (add-van) 100 ML IV (09:24)
[2023-08-30] MEDS: sodium chloride 0.9% 500 ML 999 ML IV ×2 (09:49→23:55)
[2023-08-30 10:51] LABS: Troponin 5 2HR 46.77 ng/L (0-15)
--- NOTE | 2023-08-30 10:51 | ECG_ITS ---
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 Measurements Intervals [place] Rate: 102 P: 0 VA: 0 QRS: -66 QRSD: 121 T: 81 QT: 356 QTc: 464 Interpretive Statements ATRIAL FIBRILLATION WITH RAPID VENTRICULAR RESPONSE INFERIOR MYOCARDIAL INFARCTION , PROBABLY OLD [40+ ms Q WAVE AND/OR ST/T ABNORMALITY IN II/aVF] ANTEROSEPTAL MYOCARDIAL INFARCTION , PROBABLY OLD [40+ ms Q WAVE IN V1-V4] Compared to ECG 08/30/2023 08:51:51 No significant changes Electronically Signed On 08-30-2023 13:57:13 CLINICAL ASSISTANT by Miles Johnson M.D. [id number]
[2023-08-30 10:52] LABS: Troponin 5 2HR Delta -4.23 ABS# (0-10)
--- NOTE | 2023-08-30 11:23 | PM.HP ---
Providers/Chief Complaint Admitting Physician: Kaiser Rojas MD Primary Care Provider: Antolin Jernigan DO Chief Complaint: Sob, Chest pain History of Present Illness Armando Tripathi is a 83 year old male presenting to the emergency department not feeling well since Monday. He reports it started with some nausea, and even had an episode of vomiting x 1. He has been weak, dizzy. He has not had any chest discomfort. He has had a cough but it is now better. He denies any dizziness, or syncope. He has not had any fever. There is been no blood in his stool. He was short of breath but it seems a little bit better 2. He was actually bringing a friend over for a study, and figured he should be checked out by the [place] while he was in town. At the [facility] he was directed by ambulance here secondary to rapid ventricular rate from his atrial fibrillation. He has not taken his usual medication this morning. Review of Systems General: Reports: 10 or more systems reviewed and unremarkable except in HPI and below Card: Denies: chest pain or swelling of feet/ankles Resp: Reports: dyspnea and non-productive cough GI: Reports: nausea and vomiting; Denies: abdominal pain, hematemesis or melena Medications/Allergies Home Medications Medication Instructions Recorded Confirmed Last Taken Type apixaban 5 mg tablet 5 mg PO BID 01/07/20 08/30/23 08/29/23 History atorvastatin 80 mg tablet 40 mg PO QPM 01/07/20 08/30/23 08/29/23 History metoprolol tartrate 50 mg PO BID 04/04/23 08/30/23 08/29/23 History tamsulosin 0.4 mg capsule 0.8 mg PO BEDTIME 04/04/23 08/30/23 08/29/23 History albuterol sulfate 2.5 mg/3 mL 2.5 mg inhalation QID PRN 08/30/23 08/30/23 Unknown History (0.083 %) solution for nebulization Shortness Of Breath albuterol sulfate 90 mcg/actuation 2 puff inhalation Q6H PRN 08/30/23 08/30/23 Unknown History aerosol inhaler Shortness Of Breath ferrous sulfate 27 mg iron tablet 27 mg PO DAILY 08/30/23 08/30/23 08/29/23 History lisinopril 20 mg tablet 20 mg PO DAILY 08/30/23 08/30/23 08/29/23 History olodaterol 2.5 mcg/actuation mist 2 inh inhalation DAILY 08/30/23 08/30/23 08/29/23 History for inhalation sodium bicarbonate 650 mg tablet See Rx Instructions .Route .COMPLEX 08/30/23 08/30/23 08/29/23 History Allergies Allergy/AdvReac Type Severity Reaction Status Date / Time No Known Allergies Allergy Verified 08/30/23 09:00 PFSH Acute PFSH: Medical History (Updated 08/30/23 @ 11:36 by Kaiser Rojas MD) History of hypertension CKD stage G3a/A1, GFR 45-59 and albumin creatinine ratio <30 mg/g COPD exacerbation Acute respiratory failure with hypoxia COPD (chronic obstructive pulmonary disease) Atrial flutter Coronary artery disease Asymptomatic microscopic hematuria BPH NOS w ur obs/LUTS Surgical History (Updated 08/30/23 @ 11:30 by Kaiser Rojas MD) History of neck surgery History of coronary artery stent placement History of right inguinal hernia repair H/O wisdom tooth extraction Family History Father CAD (coronary artery disease) of [place] at 59 Brother Lung disease Other Asthma Denies family history of Diabetes Clotting disorder Dementia Chronic kidney disease (CKD) Suicide Anesthesia complication Bleeding disorder Cancer Stroke Social History Smoking and tobacco/nicotine status: former use of tobacco/nicotine Alcohol intake: never Substance/Drug Use: never Household members: spouse Marital status: Current occupational status: retired Vitals/I&O/Wt Last Vital Signs Temp 98.0 F 08/30/23 08:48 Pulse 120 H 08/30/23 11:03 Resp 18 08/30/23 11:03 BP 115/56 08/30/23 11:03 Pulse Ox 92 08/30/23 11:03 O2 Del Method Nasal Cannula 08/30/23 11:03 O2 Flow Rate 2 08/30/23 11:03 08/29/23 08/30/23 08/30/23 22:59 06:59 14:59 Intake Total 504.25 / 504.25 Balance 504.25 / 504.25 Weight last 48 hrs Weight 99.79 kg Physical Exam Narrative: General exam is white male, conversant, in no distress, currently on a Cardizem drip at 7.5 with a heart rate of 105 HEENT: Atraumatic normocephalic. Pupils equally round. Oropharynx clear. Neck is supple no lymphadenopathy thyromegaly Cardiovascular irregular, irregular. No murmur. Heart rate over 100. Lungs clear. No wheezes or crackles Abdomen is soft nontender with positive bowel sounds. No obvious organomegaly exam was deferred Extremities no cyanosis clubbing or edema, cap refill brisk Skin no rash Neuro no obvious focal deficits. Data 08/30/23 08:37 08/30/23 08:37 Other Labs: Liver function tests are normal Troponin 51 with repeat of 46 Albumin, calcium is normal EKG demonstrates atrial fibrillation, rate of around 150 initially with left axis deviation. An intraventricular conduction delay is present. Poor R wave progression with Q waves inferior and anterior noted unchanged from previous EKGs Echo 11 February 2018 demonstrated preserved EF There are notes from cardiology that he had a PCI in 2018 with multiple drug-eluting stents. Chest x-ray which I reviewed demonstrates some bibasilar atelectasis, and an opacity left lateral mid lung, etiology unknown A&P Assessment and plan (1) Atrial fibrillation with rapid ventricular response: Patient presents with atrial fibrillation with rapid ventricular rate He is currently on a Cardizem drip at 7.5 mg hourly He is already anticoagulated with apixaban I will give him 25 mg metoprolol now, and restart his 50 mg of metoprolol twice a day. Will adjust this dose as needed. Wean Cardizem drip off as tolerated Could also consider adding p.o. Cardizem, if he does not respond to increases in metoprolol Check TSH and magnesium (2) Abnormal chest x-ray: Patient has abnormal chest x-ray CT chest without contrast to delineate abnormality left side. (3) CKD stage G3a/A1, GFR 45-59 and albumin creatinine ratio <30 mg/g: Avoid renal toxic medication In order to make room for adjustments in metoprolol, and possibly diltiazem will hold his home lisinopril Continue his sodium bicarbonate (4) Coronary artery disease: Add low-dose aspirin. Continue beta-[place] and statin. Plan Other medical problems as outlined in past medical history Full code Eliquis will suffice for DVT prophylaxis Attestations Medical Necessity Statement*: Will need less than 2 midnight stay for treatment of atrial fibrillation with rapid ventricular rate Diagnoses Atrial fibrillation with rapid ventricular response I48.91 Abnormal chest x-ray R93.89 CKD stage G3a/A1, GFR 45-59 and albumin creatinine ratio <30 mg/g N18.31 Coronary artery disease involving [place] coronary artery of [place] heart, angina presence unspecified I25.10 Time Spent (min) 49
--- NOTE | 2023-08-30 11:38 | CTR_ITS ---
PROCEDURE INFORMATION: Exam: CT Chest Without Contrast; Diagnostic Exam date and time: 08/30/2023 5:07 PM Age: 83 years old Clinical indication: Shortness of breath; Additional info: Abnormal cxr TECHNIQUE: Imaging protocol: Diagnostic computed tomography of the chest without contrast. Radiation optimization: All CT scans at this facility use at least one of these dose optimization techniques: automated exposure control; mA and/or kV adjustment per patient size (includes targeted exams where dose is matched to clinical indication); or iterative reconstruction. REPORTING DATA: Count of CT and Cardiac NM exams in prior 12 months: This patient has received [address] and 0 known cardiac nuclear medicine studies in the 12 months prior to the current study. COMPARISON: CT chest abdpel w/*[id number] 01/19/2023 1:51 PM RADIATION DOSE METRICS: Total DLP (mGy-cm): 495 FINDINGS: Lungs: Multiple pulmonary nodules measuring up to 6 mm are unchanged (example series 4, image 39 in the right lower lobe abutting the major fissure and left upper lobe image 26). No new or enlarging pulmonary nodules. Similar scattered subpleural reticular/interstitial changes but no maye honeycombing. Pleural spaces: No pneumothorax or pleural effusion. Heart: Coronary calcifications. No pericardial effusion. Lymph nodes: No enlarged lymph nodes. Vasculature: No aortic aneurysm. Bones/joints: No acute findings Soft tissues: Unchanged 2 cm pancreatic tail cystic lesion. CT/CT chest wo con [id number] IMPRESSION: No focal consolidation. Multiple unchanged pulmonary nodules measuring up to 6 mm.
[2023-08-30] MEDS: metoprolol tartrate 25 mg Tablet PO (11:44)
[2023-08-30 11:58] LABS: Add Urine Culture? No; Amorphous Sediment Urine TRACE /hpf; Bacteria Urine TRACE /hpf; Bilirubin Urine Neg (Negative); Blood Urine Neg (Negative); Glucose Urine UA Norm (Normal); Hyaline Casts Urine 0-4 /lpf; Ketones Urine Negative (Negative); Leukocyte Esterase Urine Negative (Negative); Nitrate Urine Negative (Negative); Protein Urine Trace (Negative); RBC Urine 0-4 /hpf (0-2); Squamous Epithelial Cell Urine 0-4 /hpf (0-5); Urine Appearance Clear (CLEAR); Urine Color Yellow (Yellow); Urobilinogen Urine Norm (Negative); WBC Urine 0-4 /hpf (0-5); pH Urine 5 (5-7)
[2023-08-30 12:15] LABS: Magnesium 2.3 mg/dL (1.7-2.3); Thyroid Stimulating Hormone 2.73 uIU/mL (0.27-4.20)
[2023-08-30 12:25] LABS: NT Pro B Type Natriuretic Pept 952 pg/mL (0-450); Procalcitonin 0.18 ng/mL (0-0.5)
[2023-08-30 12:36] LABS: C Reactive Protein 36.4 mg/L (0.0-4.9)
--- NOTE | 2023-08-30 13:26 | USCV_ITS ---
Bhumi, Armando Age: 83 Gender: M : 1940 Exam Date: 08/30/2023 15:08 Ordering Phys: Huy Duke MD Technologist: Ian Souza [place] [facility] [place]: sob chest pain BP: 97 / 57 HR: 98 Rhythm: Sinus Technical Quality: Adequate MEASUREMENTS (Male / Female) Normal Values 2D ECHO LV Diastolic Diameter PLAX 3.5 cm 4.2 - 5.9 / 3.9 - 5.3 cm LV Systolic Diameter PLAX 2.0 cm IVS Diastolic Thickness 1.1 cm 0.6 - 1.0 / 0.6 - 0.9 cm IVS Systolic Thickness 1.7 cm LVPW Diastolic Thickness 1.3 cm 0.6 - 1.0 / 0.6 - 0.9 cm LVPW Systolic Thickness 1.4 cm LVOT Diameter 2.1 cm LV Ejection Fraction 2D Teich 73.8 % LA Diameter 3.9 cm IVC Diameter 1.8 cm M-MODE Aortic Annulus Diameter 4.5 cm LA Ao Ratio MM 0.8 MV E Point Septal Separation 1.5 cm DOPPLER AV Peak Velocity 103.0 cm/s LVOT Peak Velocity 72.0 cm/s AV Area Cont Eq vti 2.6 cm squared AV Area Cont Eq pk 2.5 cm squared MV Area PHT 4.0 cm squared Mitral E to A Ratio 1.8 MV E' Velocity 40.0 cm/s Mitral E to MV E' Ratio 11.0 Mitral E to LV E' Lateral Ratio 9.8 Mitral E to LV E' Septal Ratio 12.6 TR Peak Velocity 144.7 cm/s TR Peak Gradient 8.4 mmHg TV Peak E Velocity 73.0 cm/s Right Atrial Pressure 3.0 mmHg Pulmonary Artery Systolic Pressu 11.4 mmHg RV Acceleration Time 0.1 s FINDINGS Left Ventricle Technically limited quality echocardiogram because of poor ultrasonic windows. Grossly LV systolic function is normal. Cannot assess regional wall motion abnormalities echo accurately because of limited visualization Right Ventricle Grossly normal Right Atrium Grossly normal Left Atrium Grossly dilated Mitral Valve Grossly normal Aortic Valve Not well-visualized. No significant stenosis Tricuspid Valve Not well-visualized Pulmonic Valve Not well-visualized Pericardium Grossly normal Aorta Not well visualized IVC Appears to be normal CONCLUSIONS Technically limited quality echocardiogram because of poor ultrasonic windows. Grossly LV systolic function is normal. Valvular structures are not well-visualized however grossly normal. Accurate comparison with prior echocardiogram not possible because of limited visualization. Miles Johnson MD (Electronically Signed) Final Date: 31 August 2023 11:53 S
[2023-08-30] MEDS: dilTIAZem 30 mg Tablet PO ×2 (13:50→20:02)
[2023-08-30 14:07] LABS: Adenovirus Not Detected (NOT DETECT); Chlamydia Pneumoniae Not Detected (NOT DETECT); Coronavirus 229E,HKU1,NL63,OC4 Not Detected (NOT DETECT); Human Metapneumovirus Not Detected (NOT DETECT); Human Rhinovirus/Enterovirus Not Detected (NOT DETECT); Influenza A Detected (NOT DETECT); Influenza A H1 Not Detected (NOT DETECT); Influenza A H1-2009 Detected (NOT DETECT); Influenza A H3 Not Detected (NOT DETECT); Influenza B Not Detected (NOT DETECT); Mycoplasma Pneumoniae Not Detected (NOT DETECT); Parainfluenza Virus Type 1 Not Detected (NOT DETECT); Parainfluenza Virus Type 2 Not Detected (NOT DETECT); Parainfluenza Virus Type 3 Not Detected (NOT DETECT); Parainfluenza Virus Type 4 Not Detected (NOT DETECT); Respiratory Syncytial Virus A Not Detected (NOT DETECT); Respiratory Syncytial Virus B Not Detected (NOT DETECT); SARS-COV-2 Not Detected (NOT DETECT)
[2023-08-30 14:48] LABS: Troponin 5 6HR 52.24 ng/L (0-15); Troponin 5 6HR Delta 1.24 ng/L (0-12)
--- NOTE | 2023-08-30 14:59 | ECG_ITS ---
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 Measurements Intervals [place] Rate: 98 P: 0 [place]: 0 QRS: -63 QRSD: 118 T: 62 QT: 374 QTc: 479 Interpretive Statements ATRIAL FIBRILLATION INFERIOR MYOCARDIAL INFARCTION , PROBABLY OLD [40+ ms Q WAVE AND/OR ST/T ABNORMALITY IN II/aVF] ANTEROSEPTAL MYOCARDIAL INFARCTION , PROBABLY OLD [40+ ms Q WAVE IN V1-V4] Compared to ECG 08/30/2023 12:25:24 No significant changes Electronically Signed On 08-30-2023 15:35:09 [employer] by Miles Johnson M.D. [id number]
[2023-08-30] MEDS: oseltamivir phosphate 30 mg Capsule PO (20:02)
[2023-08-30] MEDS: tamsulosin 0.4 mg Capsule 0.8 MG PO (20:02)
[2023-08-30] MEDS: atorvastatin 40 mg Tablet PO (20:02)
[2023-08-30] MEDS: metoprolol tartrate 50 mg Tablet PO (20:02)
[2023-08-30] MEDS: apixaban 5 mg Tablet PO (20:03)
[2023-08-30] MEDS: ipratropium-albuterol 3 mL Neb INHALATION (21:17)
[2023-08-30] MEDS: budesonide 0.5 mg/2 mL Neb INHALATION (21:17)
[2023-08-30] MEDS: sodium bicarbonate 650 mg Tablet PO (23:29)
--- NOTE | 2023-08-30 23:57 | PC.NURSE ---
[facility] room 105 BP is 82/45 on monitor and 88/[address] Edgar notified, ordered to hold 30 mg PO cardizem for 01:15 and to give 500mL NS bolus.
[2023-08-31] MEDS: sodium chloride 0.9% 500 ML 999 ML IV (01:46)
[2023-08-31 03:38] VITALS: BP 97/45; PULSE 67; RESP 21; TEMP 36.8; O2SAT 96
[2023-08-31 04:35] LABS: Basophils % 0.3 %; Eosinophils # 0.1 10^3/uL (0.0-0.8); Eosinophils % 1.6 %; Hematocrit 38.5 % (37-53); Lymphocytes # 1.3 10^3/uL (0.8-4.8); Mean Corpuscular HGB Conc 33.2 g/dL (30-55); Mean Corpuscular Hemoglobin 29.1 pg (27-33); Mean Corpuscular Volume 87.5 fl (82-101); Mean Platelet Volume 9.4 fL (7.4-10.4); Monocytes # 0.4 10^3/uL (0.2-0.9); Monocytes % 13.8 %; Neutrophils # 1.31 10^3/uL (1.8-7.7); Nucleated Red Blood Cells % 0 %; Platelet Count 162 10^3/cmm (157-399); Red Cell Distribution Width 14.3 % (12.1-15.1); White Blood Count 3.05 10^3/uL (3.29-11.43)
[2023-08-31 05:04] LABS: Alanine Aminotransferase 12 U/L (0-41); Albumin Level 3.1 g/dL (3.5-5.2); Alkaline Phosphatase 65 U/L (40-130); Anion Gap 17.8 (5-19); Aspartate Amino Transferase 34 U/L (0-40); Blood Urea Nitrogen 55 mg/dL (8-23); Calcium 7.9 mg/dL (8.5-10.5); Carbon Dioxide 22 mmol/L (22-29); Chloride 104 mmol/L (98-107); Globulin 2.2 g/dL (1.3-4.6); Glucose 97 mg/dL (65-115); Magnesium 2.2 mg/dL (1.7-2.3); Osmolality Calculated 305 mOsm/kg (285-295); Potassium 3.8 mmol/L (3.5-5.1); Sodium 140 mmol/L (136-145); Total Bilirubin 0.3 mg/dL (0.15-1.2); Total Protein 5.3 g/dL (6.6-8.7)
[2023-08-31 05:06] LABS: NT Pro B Type Natriuretic Pept 1490 pg/mL (0-450)
[2023-08-31] MEDS: sodium bicarbonate 650 mg Tablet PO (05:34)
[2023-08-31 06:21] VITALS: PULSE 64
--- NOTE | 2023-08-31 06:30 | PC.NURSE ---
Patient was given 500mL NS x 2 this shift for low BP. Dr Edgar ordered to hold 0115 and 0715 dose of cardizem. Patient bp remained low, Dr howard. was instructed to monitor patient and hold cardizem.
[2023-08-31 07:15] VITALS: BP 111/54; PULSE 68; RESP 25; TEMP 36.7; O2SAT 96
[2023-08-31] MEDS: aspirin 81 mg EC Tablet PO (08:44)
[2023-08-31] MEDS: metoprolol tartrate 50 mg Tablet PO (08:44)
[2023-08-31] MEDS: oseltamivir phosphate 30 mg Capsule PO (08:44)
[2023-08-31] MEDS: apixaban 5 mg Tablet PO (08:44)
[2023-08-31] MEDS: budesonide 0.5 mg/2 mL Neb INHALATION (09:06)
[2023-08-31] MEDS: ipratropium-albuterol 3 mL Neb INHALATION (09:06)
[2023-08-31 09:09] VITALS: PULSE 90; RESP 18; O2SAT 91
--- NOTE | 2023-08-31 09:30 | PM.DCS ---
Discharge Providers Date of Admission: 08/30/23 10:54 Date of Discharge: August 31, 2023 Attending Provider at Admission: Kaiser Rojas MD Attending Provider at Discharge: Kaiser Rojas MD Primary Care Provider: Antolin Jernigan DO Diagnoses at Discharge Discharge Diagnosis (1) Atrial fibrillation with rapid ventricular response: Status: Acute (2) Abnormal chest x-ray: Status: Acute (3) CKD stage G3a/A1, GFR 45-59 and albumin creatinine ratio <30 mg/g: Status: Acute (4) Coronary artery disease: Status: Acute Reason for Visit Reason for Visit: Sob, Chest pain Hospital Course Hospital Course Armando is an 83-year-old white male who presented to the hospital after he was found to be in atrial fibrillation with rapid ventricular rate. He was really asymptomatic other than feeling a little bit more short of breath and weak than usual. He had no significant troponin trend. Overall EKG pattern was unchanged from before other than the A-fib with RVR. He was placed on a Cardizem drip, and there was orders to put him back on his regular metoprolol dose. Initially, it was thought to add Cardizem p.o. to his regimen. However, he converted to sinus rhythm and blood pressures were somewhat low despite holding his Norvasc and lisinopril hydrochlorothiazide so p.o. Cardizem was not given regularly. The following morning he was still in sinus rhythm. It is been established he had influenza by PCR testing on admission. Tamiflu was initiated. It was thought that his decompensation in his heart rhythm was most likely due to the influenza, and that no changes of his rate limiting medication were needed. At discharge she was in sinus rhythm with a blood pressure of 111/54. He was instructed to hold his lisinopril hydrochlorothiazide as well as Norvasc until follow-up with his primary care provider in 3 to 5 days. An echo was ordered, taken, and pending at discharge. This can be followed up as an outpatient. Discharge creatinine 2.7, stable he was given opportunity ask questions and agreed with the plan. Physical Exam Narrative: General exam no distress Neck is supple Cardiovascular regular rate and rhythm, no murmur Lungs clear Abdomen is soft Extremities no cyanosis clubbing or edema Discharge Data Studies Completed and Pending Completed Studies During Hospitalization Category Date Time Status CT chest wo con [id number] Routine Cat Scan 08/30/23 11:38 Completed XR chest 1V portable [id number] Stat Exams 08/30/23 08:50 Completed Pending at discharge Category Date Time Status NT Pro B Type Natriuretic Pept QAM Lab 09/01/23 06:00 Ordered NT Pro B Type Natriuretic Pept QAM Lab 09/02/23 06:00 Ordered CV. echo complete* [id number] Routine Ultrasound 08/30/23 13:26 Taken Radiology Impressions Chest X-Ray 08/30/23 08:50 IMPRESSION: 1. Bilateral subpleural lower lung predominant reticular opacity corresponds to the findings on chest CT 01/19/2023 and suggests chronic interstitial lung disease. 2. Asymmetric opacity in the lateral left mid lung has been variably visible on prior chest radiographs dating back to 07/01/2020. No definite correlate is visible on the prior chest CT. Possible pulmonary consolidation, atelectasis, or loculated pleural fluid. Chest CT 08/30/23 11:38 IMPRESSION: No focal consolidation. Multiple unchanged pulmonary nodules measuring up to 6 mm. Laboratory Results WBC 3.05 10^3/uL (3.29-11.43) L 08/31/23 04:00 RBC 4.40 10^6/uL (3.85-5.65) 08/31/23 04:00 Hgb 12.80 g/dL (11.27-16.99) 08/31/23 04:00 Hct 38.5 % (37-53) 08/31/23 04:00 MCV 87.5 fl (82-101) 08/31/23 04:00 MCH 29.1 pg (27-33) 08/31/23 04:00 MCHC 33.2 g/dL (30-55) 08/31/23 04:00 RDW 14.3 % (12.1-15.1) 08/31/23 04:00 Plt Count 162 10^3/cmm (157-399) 08/31/23 04:00 MPV 9.4 fL (7.4-10.4) 08/31/23 04:00 Neut % (Auto) 43.0 % 08/31/23 04:00 Lymph % (Auto) 41.0 % 08/31/23 04:00 [place] % (Auto) 13.8 % 08/31/23 04:00 Eos % (Auto) 1.6 % 08/31/23 04:00 Baso % (Auto) 0.3 % 08/31/23 04:00 Neut # (Auto) 1.31 10^3/uL (1.8-7.7) L 08/31/23 04:00 Lymph # (Auto) 1.3 10^3/uL (0.8-4.8) 08/31/23 04:00 [place] # (Auto) 0.4 10^3/uL (0.2-0.9) 08/31/23 04:00 Eos # (Auto) 0.1 10^3/uL (0.0-0.8) 08/31/23 04:00 Baso # (Auto) 0.0 10^3/uL (0.0-0.1) 08/31/23 04:00 Nucleated RBC % (auto) 0 % 08/31/23 04:00 Nucleated RBCs # 0.0 /100WBC 08/31/23 04:00 Sodium 140 mmol/L (136-145) 08/31/23 04:00 Potassium 3.8 mmol/L (3.5-5.1) 08/31/23 04:00 Chloride 104 mmol/L (98-107) 08/31/23 04:00 Carbon Dioxide 22 mmol/L (22-29) 08/31/23 04:00 Anion Gap 17.8 (5-19) 08/31/23 04:00 BUN 55 mg/dL (8-23) H 08/31/23 04:00 Creatinine 2.7 mg/dL (0.7-1.2) H 08/31/23 04:00 GFR Calculation Not Reportable 08/31/23 04:00 Glucose 97 mg/dL (65-115) 08/31/23 04:00 Calculated Osmolality 305 mOsm/kg (285-295) H 08/31/23 04:00 Calcium 7.9 mg/dL (8.5-10.5) L 08/31/23 04:00 Magnesium 2.2 mg/dL (1.7-2.3) 08/31/23 04:00 Total Bilirubin 0.3 mg/dL (0.15-1.2) 08/31/23 04:00 AST 34 U/L (0-40) 08/31/23 04:00 ALT 12 U/L (0-41) 08/31/23 04:00 Alkaline Phosphatase 65 U/L (40-130) 08/31/23 04:00 Troponin T Baseline 51 ng/L (0-15) H 08/30/23 08:37 Troponin T 120 Minute 46.77 ng/L (0-15) H 08/30/23 10:25 Delta Troponin T -4.23 ABS# (0-10) L 08/30/23 10:25 Troponin T Hi Sens 6Hr 52.24 ng/L (0-15) H 08/30/23 14:26 Troponin T Hi Sens 6Hr Delta 1.24 ng/L (0-12) 08/30/23 14:26 C-Reactive Protein 36.4 mg/L (0.0-4.9) H 08/30/23 08:37 NT-Pro-B Natriuret Pep 1490 pg/mL (0-450) H 08/31/23 04:00 Total Protein 5.3 g/dL (6.6-8.7) L D 08/31/23 04:00 Albumin 3.1 g/dL (3.5-5.2) L 08/31/23 04:00 Globulin 2.2 g/dL (1.3-4.6) 08/31/23 04:00 Procalcitonin 0.18 ng/mL (0-0.5) 08/30/23 08:37 TSH 2.73 uIU/mL (0.27-4.20) 08/30/23 08:37 Urine Color Yellow (Yellow) 08/30/23 11:48 Urine Appearance Clear (CLEAR) 08/30/23 11:48 Urine pH 5 (5-7) 08/30/23 11:48 Ur Specific [place] 1.020 (1.005-1.030) 08/30/23 11:48 Urine Protein Trace (Negative) 08/30/23 11:48 Urine Glucose (UA) Norm (Normal) 08/30/23 11:48 Urine Ketones Negative (Negative) 08/30/23 11:48 Urine Blood Neg (Negative) 08/30/23 11:48 Urine Nitrate Negative (Negative) 08/30/23 11:48 Urine Bilirubin Neg (Negative) 08/30/23 11:48 Urine Urobilinogen Norm mg/dL (Negative) 08/30/23 11:48 Ur Leukocyte Esterase Negative (Negative) 08/30/23 11:48 Urine RBC 0-4 /hpf (0-2) H 08/30/23 11:48 Urine WBC 0-4 /hpf (0-5) H 08/30/23 11:48 Ur Squamous Epith Cells 0-4 /hpf (0-5) H 08/30/23 11:48 Amorphous Sediment Trace /hpf 08/30/23 11:48 Urine Bacteria Trace /hpf (NONE) 08/30/23 11:48 Hyaline Casts 0-4 /lpf H 08/30/23 11:48 Nasal Influ A H1 2009 PCR Detected (NOT DETECT) A 08/30/23 12:19 Adenovirus (PCR) Not detected (NOT DETECT) 08/30/23 12:19 C. pneumoniae DNA (PCR) Not detected (NOT DETECT) 08/30/23 12:19 Coronavirus 229E (PCR) Not detected (NOT DETECT) 08/30/23 12:19 Human Metapneumovir PCR Not detected (NOT DETECT) 08/30/23 12:19 Influenza A (H1) PCR Not detected (NOT DETECT) 08/30/23 12:19 Influenza A (H3) PCR Not detected (NOT DETECT) 08/30/23 12:19 Influenza Type A (PCR) Detected (NOT DETECT) A 08/30/23 12:19 Influenza Type B (PCR) Not detected (NOT DETECT) 08/30/23 12:19 M. pneumoniae (PCR) Not detected (NOT DETECT) 08/30/23 12:19 Parainfluenza 1 (PCR) Not detected (NOT DETECT) 08/30/23 12:19 Parainfluenza 2 (PCR) Not detected (NOT DETECT) 08/30/23 12:19 Parainfluenza 3 (PCR) Not detected (NOT DETECT) 08/30/23 12:19 Parainfluenza 4 (PCR) Not detected (NOT DETECT) 08/30/23 12:19 RSV Type A (PCR) Not detected (NOT DETECT) 08/30/23 12:19 RSV Type B (PCR) Not detected (NOT DETECT) 08/30/23 12:19 Entero/Rhino (PCR) Not detected (NOT DETECT) 08/30/23 12:19 SARS-CoV-2 (PCR) Not detected (NOT DETECT) 08/30/23 12:19 Vitals Last Vital Signs Temp 98.1 F 08/31/23 07:15 Pulse 90 08/31/23 09:09 Resp 18 08/31/23 09:09 BP 111/54 08/31/23 07:15 Pulse Ox 91 08/31/23 09:09 O2 Del Method Room Air 08/31/23 09:09 O2 Flow Rate 2 08/30/23 21:17 Discharge Plan Discharge Patient Disposition: Home Condition: Stable Prescriptions: New aspirin 81 mg Tablet,Delayed Release (Dr/Ec) 81 mg PO DAILY Qty: 30 0RF oseltamivir [Tamiflu] 30 mg Capsule 30 mg PO BID Qty: 8 0RF Continued atorvastatin 80 mg tablet 40 mg PO QPM apixaban 5 mg tablet 5 mg PO BID tamsulosin 0.4 mg capsule 0.8 mg PO BEDTIME albuterol sulfate 2.5 mg /3 mL (0.083 %) Solution For Nebulization 2.5 mg INHALATION QID PRN (Reason: Shortness Of Breath) sodium bicarbonate 650 mg Tablet See Rx Instructions .ROUTE .COMPLEX Rx Instructions: TAKE 1 TABLET (650 MG) BY MOUTH IN THE MORNING, 1 TABLET IN THE EVENING AND 1 TABLET AT BEDTIME. albuterol sulfate 90 mcg/actuation Hfa Aerosol Inhaler 2 puff INHALATION Q6H PRN (Reason: Shortness Of Breath) ferrous sulfate 27 mg iron Tablet 27 mg PO DAILY olodaterol 2.5 mcg/actuation Mist 2 inh INHALATION DAILY metoprolol tartrate 50 mg Tablet 25 mg PO BID Discontinued lisinopril-hydrochlorothiazide 20-12.5 mg Tablet 1 tab PO QAM amlodipine 5 mg Tablet 5 mg PO DAILY Discharge Orders: Discharge Order (Routine); Ordered 08/31/23 Ordered By: Kaiser Rojas Referrals: Antolin Jernigan, [Primary Care Provider] - 4-7 days Discharge Diet: Cardiac Discharge Activity: Increase activity as tolerated Patient Instructions: Opioid Safety Activity Restrictions/Additional Instructions: Take all medicine as prescribed Hold your Norvasc, lisinopril/hydrochlorothiazide on discharge. Follow[facility] with [facility] about potential restart of lisinopril component in the near future. This will depend upon your blood pressure. At this point keep your metoprolol dosing the same. Return for any concerns Finish up your course of Tamiflu. Discharge Attestations Time Spent in Discharge Care*: greater than 30 min Quality Metrics Clinical Quality Measures [ No reported AMI, CVA or VTE this stay] Coding Level of Care Code Acute Code for Chg Fwd Diagnoses Atrial fibrillation with rapid ventricular response I48.91 Abnormal chest x-ray R93.89 CKD stage G3a/A1, GFR 45-59 and albumin creatinine ratio <30 mg/g N18.31 Coronary artery disease involving morongo coronary artery of morongo heart, angina presence unspecified I25.10 Time Spent (min) 35
--- NOTE | 2023-08-31 09:59 | PC.CHAP ---
Pastoral Care Encounter/Spiritual Assessment Type of Contact [] Declined payroll administrative assistant visit [] Patient/Family/Request visit [] Outpatient visit [] Follow-up visit [] Physician referral [] Code/Alert [x] Routine visit [] Staff referral [] Actively dying [] Patient sleeping [] Family support [] [] Out of room [] Palliative care [] [] Receiving care in room [] Pre-surgical visit [] Trauma [] Long length of stay [] ICU visit [x] Other: Isolation Relational/Emotional Strength [] Patient feels connected with others/family/visitors/staff [] Distress [] Loneliness/isolation [] Abandonment Spirituality of Patient [] Person of Tyesha [] Attends Church of their Tyesha [] Believes in Prayer [] Reads Bible or Denominational materials [] There are Spiritual issues to be addressed Ceiling Cleaner Interventions [] Prayer [] Active listening [] Non-anxious presence [] Spiritual/emotional support [] Crisis/trauma care [x] Spiritual counseling [] Bereavement support [] Provided bereavement packet [] Provided Bible/devotional materials [] Provided toy/stuffed animal, coloring book to patient or family member [] Provided Communion [] Anointing/[place] [] Salvation [] Completed spiritual assessment [] Other: Impact on Illness or Injury [] Angry [] Fearful [] Anxious [] Often cries [] Exhaustion [] Unable to work [] Unable to attend adventist [] Unable to walk/stand [] Unable to read [] Unable to drive [] Unable to eat/drink [] Unable to sleep [] Unable to be with family [] Patient intubated [] Other: Summary Isolation Time spent with patient 5 mins
--- NOTE | 2023-08-31 12:08 | PC.NURSE ---
Discharge Note Patient discharged to home via POV accompanied by family. Discharge instructions reviewed with patient and/or vaccine customer representative. Mobile pharmacy medications and/or prescriptions provided. Belongings/home medications returned.
[2023-08-31 12:09] VITALS: PULSE 90; RESP 18; O2SAT 91
== END 2023-08-31 12:11 | disposition home or self-care (01) ==
LOC: ER 10:39 → ER IP 11:22 → CSU 15:11
PROVIDERS: Family Medicine; Admitting Provider Internal Medicine; Emergency Provider Family Medicine; PCP Emergency Medicine Emergency Medical Services; Visit Provider Internal Medicine
DX: I48.91 Unspecified atrial fibrillation (principal); R93.89 Abnormal findings on diagnostic imaging of other specified body structures; N18.31 Chronic kidney disease, stage 3a; I25.10 Atherosclerotic heart disease of native coronary artery without angina pectoris; J44.9 Chronic obstructive pulmonary disease, unspecified; N40.1 Benign prostatic hyperplasia with lower urinary tract symptoms; N13.8 Other obstructive and reflux uropathy; Z87.891 Personal history of nicotine dependence; R91.8 Other nonspecific abnormal finding of lung field
CPT/HCPCS: 36415; 71045; 71250; 80053; 81001; 81015; 83735; 83880; 84145; 84443; 84484; 85025; 86140; 87486; 87581; 87633; 93005; 93306; 94640; 96365; 96375; 96376; 99285; G0378; J3490; J7040; J7626

== ENCOUNTER 2023-09-26 13:54 | Outpatient (CLI) | payer OTHER, SELFPAY | END 2023-09-26 13:55 | disposition home or self-care (01) | LOC: RT 13:55 | PROVIDERS: PCP Emergency Medicine Emergency Medical Services; Visit Provider Emergency Medicine Emergency Medical Services | DX: J44.9 Chronic obstructive pulmonary disease, unspecified (principal); Z87.891 Personal history of nicotine dependence | CPT/HCPCS: 94010; 94726; 94729 ==

== ENCOUNTER → 2023-11-16 13:11 | Outpatient (BNVA) | payer OTHER, SELFPAY | PROVIDERS: PCP Emergency Medicine Emergency Medical Services; Visit Provider Internal Medicine Cardiovascular Disease | DX: I25.10 Atherosclerotic heart disease of native coronary artery without angina pectoris (principal); I48.92 Unspecified atrial flutter; E78.5 Hyperlipidemia, unspecified; I12.9 Hypertensive chronic kidney disease with stage 1 through stage 4 chronic kidney disease, or unspecified chronic kidney disease; N18.31 Chronic kidney disease, stage 3a; Z87.891 Personal history of nicotine dependence; Z79.01 Long term (current) use of anticoagulants | CPT/HCPCS: 99214 ==

== ENCOUNTER → 2024-05-23 09:16 | Outpatient (BNVA) | payer OTHER, SELFPAY | PROVIDERS: PCP Emergency Medicine Emergency Medical Services; Visit Provider Nurse Practitioner Family | DX: I25.10 Atherosclerotic heart disease of native coronary artery without angina pectoris (principal); I48.92 Unspecified atrial flutter; I10 Essential (primary) hypertension; Z87.891 Personal history of nicotine dependence | CPT/HCPCS: 99214 ==

== ENCOUNTER 2024-09-02 13:31 | Outpatient (CLI) | payer OTHER, SELFPAY ==
--- NOTE | 2024-09-02 13:38 | CT_ITS ---
WS: [id number] CT chest w con* [id number] HISTORY: FOLLOW UP ON PULMONARY NODULES TECHNIQUE: Axial imaging performed through the thorax. Coronal and sagittal reformats are submitted. All CT scans at [facility] use at least one of these dose optimization techniques: automated exposure control; mA and/or kV adjustment per patient size (includes targeted exams where dose is mat ched to clinical indication); or iterative reconstruction. CONTRAST: Omnipaque 350; 100 mL IV. DLP: 491.98 mGy.cm COMPARISON: 08/30/2023, 01/19/2023 Lungs and central airway: Hyperexpanded lungs. Chronic emphysema. Peripheral interstitial thickening. 5 mm RIGHT perifissural nodule. 5 mm nodule LEFT upper lobe, unchanged. Stable pleural thickening at the lung bases, RIGHT greater than LEFT. Pleura: Mild pleural nodularity and thickening is stable. Heart and pericardium: Normal size heart with no pericardial effusion. Mediastinum and john: No mediastinum or hilar adenopathy. Vessels: Mild atherosclerosis aorta. Normal size pulmonary artery. Chest wall and lower neck: Subcentimeter RIGHT thyroid nodules. Chest wall is negative. Upper abdomen: 2 adjacent cystic masses involving the pancreatic tail. In their entirety measuring 3. 8 x 0.8 cm. These have been previously described including an MRI from 08/24/2023. Slight increase in size since CT of 01/19/2023. Cortical atrophy superior pole of each kidney. Osseous structures: Increase in thoracic kyphosis. Remote fracture with healing superior sternum. CT/CT chest w con* [id number] IMPRESSION: 1. Chronic emphysema with bilateral pulmonary nodules which are stable since . No pneumonia. 2. Peripheral interstitial lung disease. 3. Lobulated cystic masses at the pancreatic tail. The entire collection measu res 3.8 x 0.8 cm with slight increase in size since 01/19/2023. MRI from 023 recommended 6-month follow-up evaluations. Cysts do not appear to have underwood ged in size since the MRI evaluation.
[2024-09-02 14:05] LABS: Blood Urea Nitrogen 26 mg/dL (8-23)
[2024-09-02] MEDS: iohexol 350 mg/mL 500 mL Btl (per mL) IV (14:13)
== END 2024-09-02 13:32 | disposition home or self-care (01) ==
LOC: RAD 13:32
PROVIDERS: Radiology Diagnostic Radiology; PCP Emergency Medicine Emergency Medical Services; Visit Provider Emergency Medicine Emergency Medical Services
DX: Z01.89 Encounter for other specified special examinations (principal); R91.8 Other nonspecific abnormal finding of lung field; J43.8 Other emphysema; J84.89 Other specified interstitial pulmonary diseases; K86.2 Cyst of pancreas; I70.0 Atherosclerosis of aorta; E04.2 Nontoxic multinodular goiter; N26.1 Atrophy of kidney (terminal); M40.294 Other kyphosis, thoracic region; S22.20XD Unspecified fracture of sternum, subsequent encounter for fracture with routine healing; X58.XXXD Exposure to other specified factors, subsequent encounter
CPT/HCPCS: 71260; 82565; 84520; Q9967

== ENCOUNTER → 2024-11-21 11:15 | Outpatient (BNVA) | payer OTHER, SELFPAY | PROVIDERS: PCP Emergency Medicine Emergency Medical Services; Visit Provider Internal Medicine Cardiovascular Disease | DX: I48.92 Unspecified atrial flutter (principal); I25.10 Atherosclerotic heart disease of native coronary artery without angina pectoris; E78.5 Hyperlipidemia, unspecified; I10 Essential (primary) hypertension | CPT/HCPCS: 99214 ==

== ENCOUNTER 2025-01-28 13:17 | Outpatient (CLI) | payer OTHER, SELFPAY ==
[2025-01-28 15:08] LABS: Basophils # 0.1 10^3/uL (0.0-0.1); Basophils % 1.1 %; Eosinophils # 0.4 10^3/uL (0.0-0.8); Eosinophils % 5.7 %; Hematocrit 39.3 % (37-53); Lymphocytes # 1.7 10^3/uL (0.8-4.8); Lymphocytes % 25.3 %; Mean Corpuscular HGB Conc 33.1 g/dL (30-55); Mean Corpuscular Hemoglobin 28.8 pg (27-33); Mean Corpuscular Volume 86.9 fl (82-101); Mean Platelet Volume 8.9 fL (7.4-10.4); Monocytes # 0.5 10^3/uL (0.2-0.9); Monocytes % 8.1 %; Neutrophils # 3.95 10^3/uL (1.8-7.7); Neutrophils % 59.5 %; Nucleated Red Blood Cells % 0 %; Platelet Count 217 10^3/cmm (157-399); Red Blood Count 4.52 10^6/uL (3.85-5.65); Red Cell Distribution Width 14.2 % (12.1-15.1); White Blood Count 6.64 10^3/uL (3.29-11.43)
[2025-01-28 15:33] LABS: Creatinine Urine, Random 145 mg/dL (39-259); Microalbum Creatinine Ratio Ur 34 mg/dL (0-20); Microalbumin Random Urine 5 ug/dL (0-20)
[2025-01-28 15:39] LABS: Calcium 8.6 mg/dL (8.5-10.5); Parathyroid Hormone 73.1 pg/mL (15-65)
[2025-01-28 15:50] LABS: 25 Hydroxy Vitamin D 57 ng/mL (30-100); Albumin Level 3.6 g/dL (3.5-5.2); Anion Gap 16.9 (5-19); Blood Urea Nitrogen 25 mg/dL (8-23); Calcium 8.6 mg/dL (8.5-10.5); Carbon Dioxide 24 mmol/L (22-29); Chloride 105 mmol/L (98-107); Glucose 139 mg/dL (65-115); Phosphorus 2.8 mg/dL (2.5-4.5); Potassium 3.9 mmol/L (3.5-5.1); Sodium 142 mmol/L (136-145)
== END 2025-01-28 13:18 | disposition home or self-care (01) ==
PROVIDERS: Visit Provider Internal Medicine Nephrology
DX: N18.4 Chronic kidney disease, stage 4 (severe) (principal); E55.9 Vitamin D deficiency, unspecified; N25.81 Secondary hyperparathyroidism of renal origin
CPT/HCPCS: 36415; 80069; 82044; 82306; 82310; 83970; 85025

== ENCOUNTER → 2025-08-04 13:53 | Outpatient (BNVA) | payer OTHER, SELFPAY | PROVIDERS: Visit Provider Internal Medicine Cardiovascular Disease | DX: I48.92 Unspecified atrial flutter (principal); Z79.01 Long term (current) use of anticoagulants; I25.10 Atherosclerotic heart disease of native coronary artery without angina pectoris; I10 Essential (primary) hypertension; E78.5 Hyperlipidemia, unspecified; Z95.5 Presence of coronary angioplasty implant and graft; Z87.891 Personal history of nicotine dependence | CPT/HCPCS: 99214 ==

== ENCOUNTER 2025-08-18 13:29 | Outpatient (CLI) | payer OTHER, SELFPAY ==
[2025-08-18 14:26] LABS: Hematocrit 41.4 % (37-53); Hemoglobin 14.00 g/dL (11.27-16.99); Mean Corpuscular HGB Conc 33.8 g/dL (30-55); Mean Corpuscular Hemoglobin 29.4 pg (27-33); Mean Corpuscular Volume 87.0 fl (82-101); Nucleated Red Blood Cells % 0 %; Platelet Count 240 10^3/cmm (157-399); Red Blood Count 4.76 10^6/uL (3.85-5.65); White Blood Count 7.37 10^3/uL (3.29-11.43)
[2025-08-18 14:53] LABS: Calcium 8.4 mg/dL (8.5-10.5)
[2025-08-18 14:54] LABS: Creatinine Urine, Random 148 mg/dL (39-259); Microalbum Creatinine Ratio Ur 7 mg/dL (0-20)
[2025-08-18 14:57] LABS: Albumin Level 3.4 g/dL (3.5-5.2); Anion Gap 16.0 (5-19); Blood Urea Nitrogen 29 mg/dL (8-23); Calcium 8.2 mg/dL (8.5-10.5); Carbon Dioxide 24 mmol/L (22-29); Chloride 106 mmol/L (98-107); Glucose 139 mg/dL (65-115); Potassium 4.0 mmol/L (3.5-5.1); Sodium 142 mmol/L (136-145)
== END 2025-08-18 13:30 | disposition home or self-care (01) ==
PROVIDERS: PCP Family Medicine Geriatric Medicine; Visit Provider Internal Medicine Nephrology
DX: N18.4 Chronic kidney disease, stage 4 (severe) (principal); E55.9 Vitamin D deficiency, unspecified; N25.81 Secondary hyperparathyroidism of renal origin
CPT/HCPCS: 36415; 80069; 82044; 82310; 82652; 83970; 85025